=== PATIENT | female | born 1950 | race Two or more races ===

== ENCOUNTER 2019-09-17 13:42 | Inpatient (IN) | payer MEDICARE, OTHER ==
[~2019-09-17] VITALS: Ht 152.4 cm; Wt 52.2 kg
[2019-09-17] MEDS ORDERED: RANITIDINE HCL150 M2 PO (13:44)
[2019-09-17] MEDS ORDERED: LEVOTHYROXINE75 MCG ORAL (13:45)
--- NOTE | 2019-09-17 13:51 | NUR ---
ED Nurse Note: Patient brought in by ambulance from daylight due to possible syncopal episode/altered. Pateint was sitting in chair and found have low blood pressure. Patient awake, alert, oriented (name, place), c/o frontal headache. Reports no N/V or trauma. No family member available at this time. Placed patient in gown and on naval science teacher.
[2019-09-17 14:00] VITALS: BP 89/49
[2019-09-17] MEDS ORDERED: Sodium Chloride 1,400 ML IVLG ONE (14:15)
--- NOTE | 2019-09-17 14:36 | NUR ---
ED Nurse Note: Patient taken down for CT scan head. Blood culture 2nd set drawn and set. Urine collected 20ml, yellow urine with foul smell noted.
--- NOTE | 2019-09-17 14:38 | Emergency Room Report ---
History of Present Illness General Chief Complaint: Altered Level of Consciousness Source: Patient, Family Member, Medical Record Present Illness HPI This patient is accompanied by her sister who is her primary caregiver. The patient was attending adult daycare today when workers there noted that she was slumped over in her chair. It was noted that her blood pressure was low. The patient herself has no complaints other than she has a headache. The caregiver notes that she has had a mild cough and decreased appetite over the past couple days. There is no report of fever. There is no other pain. There are no other complaints. Allergies: Coded Allergies: No Known Allergies (Unverified , 09/17/19) Patient History Past Medical History: see triage record, [place], GERD, seizures, renal disease, other - Hypothyroid, Hx of bulemia (morbid obesity) Past Surgical History: other - hx of open heart surgery as a child ([place], CHF in her 30's) Social History: Denies: smoking, alcohol use, drug use Reviewed Nursing Documentation: PMH: Agreed; PSxH: Agreed Review of Systems All Other Systems: negative except mentioned in HPI Physical Exam Vital Signs Date Time Temp Pulse Resp B/P (MAP) Pulse Ox O2 Delivery O2 Flow Rate FiO2 09/17/19 13:35 98.1 82 16 70/40 (50) 96 Room Air Sp02 EP Interpretation: reviewed, normal General Appearance: no apparent distress, alert, GCS 15, non-toxic Head: normocephalic, atraumatic Eyes: bilateral eye normal inspection, bilateral eye PERRL ENT: hearing grossly normal, normal pharynx, no angioedema, normal voice Neck: supple/symm/no masses Respiratory: chest non-tender, lungs clear, normal breath sounds, no respiratory distress, no retraction, no accessory muscle use, speaking full sentences Cardiovascular #1: regular rate, rhythm, no edema Gastrointestinal: normal bowel sounds, non tender, soft, non-distended, no guarding, no rebound Rectal: deferred Musculoskeletal: back normal, normal range of motion, non-tender Neurologic: alert, motor strength/tone normal, oriented, sensory intact, responsive, speech normal, no focal defects Psychiatric: judgement/insight normal, mood/affect normal, no suicidal/ homicidal ideation Skin: other - See RN skin exam Lymphatic: no adenopathy Medical Decision Making Diagnostic Impression: Primary Impression: NSTEMI (non-ST elevated myocardial infarction) Additional Impressions: Syncope Hypotension Pneumonia Anemia Leukocytosis Renal failure ER Course This patient was found to be significantly bradycardic with heart rates in the low 50s. She was also borderline hypotensive. On arrival she was hypotensive but did stabilize in the low 100s systolic during her ED course after IV fluids. She was given Rocephin as a precaution and for possible pneumonia on chest x-ray. The patient's troponin was elevated. She also has an elevated creatinine that I am unsure of the acuity. Per report from her caregiver the patient does have known kidney disease. I do not have any comparison labs. Given the patient's age and chronic illnesses, she does have a high avidity and mortality. Although, the patient's blood pressure did stabilize, I felt this patient should be monitored and admitted to the ICU stepdown for concern that she could deteriorate. She is admitted for further evaluation and treatment and further monitoring. This patient is critically ill. This patient required complex medical decision- making, aggressive intervention, extensive laboratory workup and monitoring. Critical care time: 40 minutes. Laboratory Tests Test 09/17/19 14:10 09/17/19 14:22 White Blood Count 15.6 K/UL (4.8-10.8) H Red Blood Count 3.28 M/UL (4.20-5.40) L Hemoglobin 10.3 G/DL (12.0-16.0) L Hematocrit 31.0 % (37.0-47.0) L Mean Corpuscular Volume 94 FL (80-99) Mean Corpuscular Hemoglobin 31.4 PG (27.0-31.0) H Mean Corpuscular Hemoglobin Concent 33.3 G/DL (32.0-36.0) Red Cell Distribution Width 13.1 % (11.6-14.8) Platelet Count 195 K/UL (150-450) Mean Platelet Volume 6.4 FL (6.5-10.1) L Neutrophils (%) (Auto) 83.2 % (45.0-75.0) H Lymphocytes (%) (Auto) 10.3 % (20.0-45.0) L Monocytes (%) (Auto) 6.1 % (1.0-10.0) Eosinophils (%) (Auto) 0.2 % (0.0-3.0) Basophils (%) (Auto) 0.1 % (0.0-2.0) Sodium Level 138 MMOL/L (136-145) Potassium Level 4.5 MMOL/L (3.5-5.1) Chloride Level 105 MMOL/L (98-107) Carbon Dioxide Level 22 MMOL/L (21-32) Anion Gap 11 mmol/L (5-15) Blood Urea Nitrogen 44 mg/dL (7-18) H Creatinine 2.4 MG/DL (0.55-1.30) H Estimate Glomerular Filtration Rate mL/min (>60) Glucose Level 112 MG/DL (74-106) H Calcium Level 8.3 MG/DL (8.5-10.1) L Total Bilirubin 0.5 MG/DL (0.2-1.0) Aspartate Amino Transferase (AST) 31 U/L (15-37) Alanine Aminotransferase (ALT) 19 U/L (12-78) Alkaline Phosphatase 81 U/L (46-116) Total Creatine Kinase 173 U/L (26-308) Creatine Kinase MB 1.5 NG/ML (0.0-3.6) Creatine Kinase MB Relative Index 0.8 Troponin I 0.099 ng/mL (0.000-0.056) Total Protein 5.6 G/DL (6.4-8.2) L Albumin 2.3 G/DL (3.4-5.0) L Globulin 3.3 g/dL Albumin/Globulin Ratio 0.7 (1.0-2.7) L Thyroid Stimulating Hormone (TSH) 2.514 uiU/mL (0.358-3.740) Free Thyroxine 1.27 NG/DL (0.76-1.46) Urine Color Yellow Urine Appearance Slightly cloudy Urine pH 5 (4.5-8.0) Urine Specific [place] 1.020 (1.005-1.035) Urine Protein 3+ (NEGATIVE) H Urine Glucose (UA) Negative (NEGATIVE) Urine Ketones 1+ (NEGATIVE) H Urine Blood 2+ (NEGATIVE) H Urine Nitrite Negative (NEGATIVE) Urine Bilirubin 2+ (NEGATIVE) H Urine Ictotest Negative (NEGATIVE) Urine Urobilinogen 1 MG/DL (0.0-1.0) H Urine Leukocyte Esterase 1+ (NEGATIVE) H Urine RBC 2-4 /HPF (0 - 2) H Urine WBC 2-4 /HPF (0 - 2) Urine Squamous Epithelial Cells Many /LPF (NONE/OCC) H Urine Amorphous Sediment Few /LPF (NONE) H Urine Bacteria Few /HPF (NONE) Lactic Acid Level 1.20 mmol/L (0.4-2.0) Microbiology Date/Time Source Procedure Growth Status 09/17/19 14:22 Nasal Nares - Final Complete 09/17/19 14:22 Nasal Nares - Final Complete EKG Diagnostic Results Rate: bradycardiac Rhythm: other - S.bradycardia ST Segments: other - ST segment depressions in V1, V2, V3 Rhythm Strip Diag. Results EP Interpretation: yes Rate: 50's Rhythm: no PVC's, no ectopy, other - S.ha, ectopy Chest X-Ray Diagnostic Results Chest X-Ray Diagnostic Results : Chest X-Ray Ordered: Yes # of Views/Limited/Complete: 1 View Indication: Other - syncope EP Interpretation: Yes Interpretation: other - RLL opacity questionable, cardiomegaly Impression: Other - ?PNA, cardiomegaly. Electronically Signed by: Mignon Daniel DO CT/MRI/US Diagnostic Results CT/MRI/US Diagnostic Results : Imaging Test Ordered: CT head Impression No acute findings. Specifically no intracranial bleed, mass effect or edema. See official report. Last Vital Signs Date Time Temp Pulse Resp B/P (MAP) Pulse Ox O2 Delivery O2 Flow Rate FiO2 09/17/19 13:35 98.1 82 16 70/40 (50) 96 Room Air Disposition: ADMITTED INPATIENT Condition: Critical Mignon Daniel DO Sep 17, 2019 14:38
[2019-09-17 14:54] LABS: BASOPHILS % (AUTO) 0.1 % (0.0-2.0); EOSINOPHILS % (AUTO) 0.2 % (0.0-3.0); HEMOGLOBIN 10.3 G/DL (12.0-16.0); LYMPHOCYTES % (AUTO) 10.3 % (20.0-45.0); MEAN CORPUSCULAR VOLUME 94 FL (80-99); MONOCYTES % (AUTO) 6.1 % (1.0-10.0); NEUTROPHILS % (AUTO) 83.2 % (45.0-75.0); PLATELET COUNT 195 K/UL (150-450); RED BLOOD COUNT 3.28 M/UL (4.20-5.40); RED CELL DISTRIBUTION WIDTH 13.1 % (11.6-14.8); WHITE BLOOD COUNT 15.6 K/UL (4.8-10.8)
[2019-09-17 14:57] LABS: ANION GAP 11 mmol/L (5-15); BLOOD UREA NITROGEN 44 mg/dL (7-18); CALCIUM 8.3 MG/DL (8.5-10.1); CARBON DIOXIDE 22 MMOL/L (21-32); CHLORIDE 105 MMOL/L (98-107); CREATININE 2.4 MG/DL (0.55-1.30); POTASSIUM 4.5 MMOL/L (3.5-5.1); SODIUM 138 MMOL/L (136-145)
[2019-09-17 15:00] LABS: APPEARANCE,URINE SLIGHTLY CLOUDY; BILIRUBIN, URINE 2+ (NEGATIVE); GLUCOSE, URINE (UA) NEGATIVE (NEGATIVE); KETONES,URINE 1+ (NEGATIVE); LEUKOCYTE ESTERASE ,URINE 1+ (NEGATIVE); NITRITE,URINE NEGATIVE (NEGATIVE); PH,URINE 5 (4.5-8.0); PROTEIN,URINE 3+ (NEGATIVE); UROBILINOGEN,URINE 1 MG/DL (0.0-1.0)
--- NOTE | 2019-09-17 15:00 | NUR ---
ED Nurse Note: Patient's sister here at bedside. Patient recently had flu-like symptoms. Reprots no CP, SOB or dyspnea. Patient has hx of mental disability.
[2019-09-17 15:06] LABS: COLOR,URINE YELLOW
[2019-09-17 15:10] LABS: ALANINE AMINOTRANSFERASE 19 U/L (12-78); ALBUMIN 2.3 G/DL (3.4-5.0); ALBUMIN/GLOBULIN RATIO 0.7 (1.0-2.7); ALKALINE PHOSPHATASE 81 U/L (46-116); ASPARTATE AMINO TRANSFERASE 31 U/L (15-37); BILIRUBIN,TOTAL 0.5 MG/DL (0.2-1.0); CKMB 1.5 NG/ML (0.0-3.6); CREATINE KINASE 173 U/L (26-308)
--- NOTE | 2019-09-17 15:18 | Diagnostic Imaging Report ---
Indication: Headache Technique: Contiguous 5 mm thick transaxial imaging of the head obtained in a Siemens Sensation [address] scanner. Soft tissue and bone windows generated. Automatic Exposure Control was utilized. Total Dose length Product (DLP): 1394.[address] Dose Index Volume (CTDIvol): 60 mGy Comparison: none Findings: The size and configuration of the cortical sulci, basal cisterns, and ventricles are within normal limits for age. There is no mass effect, midline shift, or edema identified. There is no evidence of acute hemorrhage or abnormal intra-axial or extra-axial fluid collections. The bones and soft tissues are unremarkable. There is opacification of the left sphenoid sinusitis. There is a mucous retention cyst within the left frontal sinus measuring 1.5 cm. Impression: No mass effect, edema or acute bleed. Sinus disease The CT scanner at [facility] is accredited by the [employer] and the scans are performed using dose optimization techniques as appropriate to a performed exam including Automatic Exposure control.
[2019-09-17] MEDS ORDERED: Aspirin EC 325mg tab ORAL ONE (15:45)
[2019-09-17 16:00] VITALS: BP 98/49
--- NOTE | 2019-09-17 16:00 | NUR ---
ED Nurse Note: ERMD notified of HR 54, junctional rhythm with SBP >90. No further order received. No changes in mental status noted.
[2019-09-17] MEDS ORDERED: OMEPRAZOLE40 M1 ORAL (16:25)
[2019-09-17] MEDS ORDERED: CALCITRIOL0.25 MCG PO (16:25)
--- NOTE | 2019-09-17 16:26 | Diagnostic Imaging Report ---
Indication: Dyspnea Comparison: None A single view chest radiograph was obtained. Findings: Pulmonary vascularity is prominent. Hilar vessels are enlarged. Cardiac enlargement noted. Sternotomy noted. Bones are osteopenic. There is a calcified structure in the right upper quadrant abdomen which might be the gallbladder. Surgical clips noted in the upper abdomen. IMPRESSION: Suspected mild CHF.
[2019-09-17 17:00] VITALS: BP 101/44
[2019-09-17] MEDS ORDERED: cefTRIAXone 1 GM in NS 55 ML IVPB ONE (17:15)
--- NOTE | 2019-09-17 18:33 | NUR ---
ED Nurse Note: Report given to ANABELLA Romero.
--- NOTE | 2019-09-17 18:44 | NUR ---
ED Nurse Note: Patient is being transferred to SDU accompained by ANABELLA Matthews. Patient resting in bed. Reports no CP, SOB or dyspnea. No changes in mental status noted. Patient's sister taking all her clothing.
--- NOTE | 2019-09-17 19:20 | NUR ---
NURSE NOTES: Received patient from ANABELLA Romero. Patient is aaox 1 with mental delay, vss, with no acute distress. Pt is cooperative, verbal, on cardiac technologist, and well groomed. Pt is on room air, NPO except ice and medications. Skin is intact, IV on left AC 20g and patient can reportedly ambulate to bedside commode with minimal assistance. Family member at bed side. Bed at its lowest position, call light in reach and x3 bed rails are up. Will continue to monitor.
[2019-09-17] MEDS ORDERED: Zolpidem 5mg tab ORAL PRN (19:30)
[2019-09-17] MEDS ORDERED: LORazepam Inj 2mg/ml 1ml IV PRN (19:30)
[2019-09-17] MEDS ORDERED: HYDROmorphone 1mg/ml Carpuject IVP PRN (19:30)
[2019-09-17] MEDS ORDERED: Hydromorphone 0.5mg/0.5ml inj IVP PRN (19:30)
[2019-09-17] MEDS ORDERED: Miralax 17gm pkt ORAL PRN (19:30)
[2019-09-17] MEDS ORDERED: Albuterol/Ipratropium 3ml neb HHN PRN (19:30)
[2019-09-17 20:00] VITALS: BP 97/45
[2019-09-17] MEDS: Docusate 100mg cap ORAL SCH (21:43)
[2019-09-17] MEDS: Atorvastatin 80mg tab ORAL SCH (21:43)
[2019-09-17] MEDS: Aspirin Baby 81mg ORAL SCH (21:48)
[2019-09-17] MEDS: Enoxaparin 30mg Inj SUBQ SCH (21:49)
[2019-09-18] VITALS: BP 128/54
[2019-09-18 04:00] VITALS: BP 112/69
[2019-09-18 06:37] LABS: BASOPHILS % (AUTO) 0.3 % (0.0-2.0); EOSINOPHILS % (AUTO) 1.4 % (0.0-3.0); HEMATOCRIT 33.8 % (37.0-47.0); HEMOGLOBIN 11.2 G/DL (12.0-16.0); LYMPHOCYTES % (AUTO) 12.2 % (20.0-45.0); MEAN CORPUSCULAR VOLUME 94 FL (80-99); MONOCYTES % (AUTO) 4.3 % (1.0-10.0); NEUTROPHILS % (AUTO) 81.8 % (45.0-75.0); PLATELET COUNT 195 K/UL (150-450); RED BLOOD COUNT 3.62 M/UL (4.20-5.40); RED CELL DISTRIBUTION WIDTH 13.2 % (11.6-14.8); WHITE BLOOD COUNT 10.5 K/UL (4.8-10.8)
--- NOTE | 2019-09-18 07:05 | NUR ---
HAND-OFF: Report given to ANABELLA Wahl.
--- NOTE | 2019-09-18 07:06 | NUR ---
NURSE NOTES: Received patient from ANABELLA Calderón. Patient is A&Ox2. Pt is cooperative, verbal, able to follow commands. NSR on radiological technologist, HR 71. No acute distress noted. Pt is on room air. NPO except ice and medications. Skin is intact, IV on left AC 20g. Advised pt to call if needing assistance to use the bathroom, pt verbalized understanding. Bed locked and in lowest position, call light in reach and x3 bed rails are up. Will continue to monitor.
[2019-09-18 07:35] LABS: ANION GAP 8 mmol/L (5-15); BLOOD UREA NITROGEN 44 mg/dL (7-18); CARBON DIOXIDE 23 MMOL/L (21-32); CHLORIDE 108 MMOL/L (98-107); CREATININE 2.1 MG/DL (0.55-1.30); POTASSIUM 4.4 MMOL/L (3.5-5.1); SODIUM 139 MMOL/L (136-145)
--- NOTE | 2019-09-18 07:44 | History and Physical ---
History of Present Illness General Date patient seen: Sep 18, 2019 Reason for Hospitalization: Altered Level of Consciousness Present Illness HPI 69 year old female with multiple medical problems presented to the ER with her sister who is her caregiver from adult day care. Patient is a poor historian and information is obtained via reviewing medical chart and speaking to the ED attending. In the adult daycare patient was noted to be slumped over in her chair and found to have very low blood pressure in the 80s. Patient is alert and oriented x2 today and says that the reason why she ended up in the hospital is because she felt dizzy. Per her ios programmer patient has had a cough and decreased appetite for the past couple of days. No reports of fever. Patient denies chest pain, shortness of breath. Patient says she fell she also hit the right side of her head. Past Medical History: Hypothyroidism, vitamin D deficiency, iron deficiency anemia, chronic kidney disease, bulimia nervosa, intellectual disability, hyperglyceridemia, GERD, liver disease, bronchitis, history of urinary tract infections Past Surgical History: hx of open heart surgery as a child ([place], CHF in her 30's ) Social History: Denies: smoking, alcohol use, drug use Family history: Patient unable to provide. PCP Ena Burrell [phone] Allergies: Coded Allergies: No Known Allergies (Unverified , 09/17/19) Medication History Scheduled Calcitriol (Calcitriol), 0.25 MCG PO DAILY, (Reported) Levothyroxine Sodium* (Levothyroxine Sodium*), 75 MCG ORAL DAILY, (Reported) Omeprazole (Omeprazole), 40 MG ORAL DAILY, (Reported) Miscellaneous Medications Ranitidine HCl (Ranitidine HCl), 150 MG PO, (Reported) Patient History Healthcare decision maker Resuscitation status Full Code Advanced Directive on File Review of Systems Constitutional: Reports: weakness Eye: Denies: no symptoms, see HPI, eye pain, blurred vision, tearing, double vision, nose pain, nose congestion, acuity changes, discharge, other ENT: Denies: no symptoms, see HPI, ear pain, ear discharge, nose pain, nose congestion, throat pain, throat swelling, mouth pain, hearing loss, nasal discharge, other Respiratory: Reports: cough Cardiovascular: Denies: no symptoms, see HPI, chest pain, edema, palpitations, syncope, PND, other Gastrointestinal: Denies: no symptoms, see HPI, abdominal pain, constipation, diarrhea, nausea, vomiting, melena, hematemesis, other Genitourinary: Denies: no symptoms, see HPI, discharge, dysuria, frequency, hematuria, pain, retention, incontinence, urgency, vag bleed/dc, other Musculoskeletal: Denies: no symptoms, see HPI, back pain, gout, joint pain, joint swelling, muscle pain, muscle stiffness, other Skin: Denies: no symptoms, see HPI, rash, change in color, change in hair/nails , dryness, lesions, other Psychiatric: Denies: no symptoms, see HPI, prior hx, anxiety, depressed feelings, emotional problems, SI, HI, hallucinations, other Neurological: Reports: dizziness Endocrine: Denies: no symptoms, see HPI, excessive sweating, flushing, intolerance to temperature, increased thirst, increased urine, unexplained weight loss, other Hematologic/Lymphatic: Denies: no symptoms, see HPI, anemia, blood clots, easy bleeding, easy bruising, swollen glands, diathesis, other Physical Exam General Appearance: no apparent distress Lines, tubes and drains: peripheral HEENT: normocephalic, atraumatic, anicteric, EOMI, other - green discharge both eyes Neck: non-tender, normal alignment, supple Respiratory/Chest: chest wall non-tender, lungs clear, normal breath sounds, no respiratory distress, no accessory muscle use, other - Sternotomy scar Cardiovascular/Chest: normal peripheral pulses, normal rate, regular rhythm, no gallop/murmur, no JVD Abdomen: normal bowel sounds, non tender, soft, no organomegaly, no mass, other - obese Extremities: normal range of motion, non-tender, normal inspection, no calf tenderness, no edema, no cyanosis Skin Exam: normal pigmentation, warm/dry Neurologic: no motor/sensory deficits, alert - oriented x2 , responsive Musculoskeletal: normal muscle bulk, no effusion Last 24 Hour Vital Signs Date Time Temp Pulse Resp B/P (MAP) Pulse Ox O2 Delivery O2 Flow Rate FiO2 09/18/19 04:00 Room Air 09/18/19 04:00 58 09/18/19 04:00 97.7 58 20 112/69 (83) 99 09/18/19 00:00 Room Air 09/18/19 00:00 97.4 53 20 128/54 (78) 94 09/17/19 23:27 Room Air 09/17/19 20:00 Room Air 09/17/19 20:00 56 09/17/19 20:00 97.4 45 22 97/45 (62) 95 09/17/19 18:41 55 16 104/45 99 Room Air 09/17/19 17:00 97.6 53 17 101/44 99 Room Air 09/17/19 16:19 63 16 Room Air 09/17/19 16:00 55 16 98/49 97 Room Air 09/17/19 14:00 97.1 63 16 89/49 99 Room Air 09/17/19 13:35 98.1 82 16 70/40 (50) 96 Room Air Intake and Output 09/17/19 09/18/19 19:00 07:00 Intake Total 2155 ml Balance 2155 ml Intake IV Total 2155 ml # Voids 1 1 Laboratory Tests Test 09/17/19 14:10 09/17/19 14:22 09/18/19 04:05 White Blood Count 15.6 K/UL (4.8-10.8) H 10.5 K/UL (4.8-10.8) Red Blood Count 3.28 M/UL (4.20-5.40) L 3.62 M/UL (4.20-5.40) L Hemoglobin 10.3 G/DL (12.0-16.0) L 11.2 G/DL (12.0-16.0) L Hematocrit 31.0 % (37.0-47.0) L 33.8 % (37.0-47.0) L Mean Corpuscular Volume 94 FL (80-99) 94 FL (80-99) Mean Corpuscular Hemoglobin 31.4 PG (27.0-31.0) H 31.1 PG (27.0-31.0) H Mean Corpuscular Hemoglobin Concent 33.3 G/DL (32.0-36.0) 33.2 G/DL (32.0-36.0) Red Cell Distribution Width 13.1 % (11.6-14.8) 13.2 % (11.6-14.8) Platelet Count 195 K/UL (150-450) 195 K/UL (150-450) Mean Platelet Volume 6.4 FL (6.5-10.1) L 7.6 FL (6.5-10.1) Neutrophils (%) (Auto) 83.2 % (45.0-75.0) H 81.8 % (45.0-75.0) H Lymphocytes (%) (Auto) 10.3 % (20.0-45.0) L 12.2 % (20.0-45.0) L Monocytes (%) (Auto) 6.1 % (1.0-10.0) 4.3 % (1.0-10.0) Eosinophils (%) (Auto) 0.2 % (0.0-3.0) 1.4 % (0.0-3.0) Basophils (%) (Auto) 0.1 % (0.0-2.0) 0.3 % (0.0-2.0) Sodium Level 138 MMOL/L (136-145) Pending Potassium Level 4.5 MMOL/L (3.5-5.1) Pending Chloride Level 105 MMOL/L (98-107) Pending Carbon Dioxide Level 22 MMOL/L (21-32) Pending Anion Gap 11 mmol/L (5-15) Blood Urea Nitrogen 44 mg/dL (7-18) H Pending Creatinine 2.4 MG/DL (0.55-1.30) H Pending Estimat Glomerular Filtration Rate mL/min (>60) Pending Glucose Level 112 MG/DL (74-106) H Pending Calcium Level 8.3 MG/DL (8.5-10.1) L Pending Total Bilirubin 0.5 MG/DL (0.2-1.0) Aspartate Amino Transf (AST/SGOT) 31 U/L (15-37) Alanine Aminotransferase (ALT/SGPT) 19 U/L (12-78) Alkaline Phosphatase 81 U/L (46-116) Total Creatine Kinase 173 U/L (26-308) Creatine Kinase MB 1.5 NG/ML (0.0-3.6) Creatine Kinase MB Relative Index 0.8 Troponin I 0.099 ng/mL (0.000-0.056) 0.025 ng/mL (0.000-0.056) Total Protein 5.6 G/DL (6.4-8.2) L Albumin 2.3 G/DL (3.4-5.0) L Globulin 3.3 g/dL Albumin/Globulin Ratio 0.7 (1.0-2.7) L Thyroid Stimulating Hormone (TSH) 2.514 uiU/mL (0.358-3.740) Free Thyroxine 1.27 NG/DL (0.76-1.46) Urine Color Yellow Urine Appearance Slightly cloudy Urine pH 5 (4.5-8.0) Urine Specific [place] 1.020 (1.005-1.035) Urine Protein 3+ (NEGATIVE) H Urine Glucose (UA) Negative (NEGATIVE) Urine Ketones 1+ (NEGATIVE) H Urine Blood 2+ (NEGATIVE) H Urine Nitrite Negative (NEGATIVE) Urine Bilirubin 2+ (NEGATIVE) H Urine Ictotest Negative (NEGATIVE) Urine Urobilinogen 1 MG/DL (0.0-1.0) H Urine Leukocyte Esterase 1+ (NEGATIVE) H Urine RBC 2-4 /HPF (0 - 2) H Urine WBC 2-4 /HPF (0 - 2) Urine Squamous Epithelial Cells Many /LPF (NONE/OCC) H Urine Amorphous Sediment Few /LPF (NONE) H Urine Bacteria Few /HPF (NONE) Lactic Acid Level 1.20 mmol/L (0.4-2.0) Pro-B-Type Natriuretic Peptide Pending Microbiology Date/Time Source Procedure Growth Status 09/17/19 14:22 Nasal Nares - Final Complete 09/17/19 14:22 Nasal Nares - Final Complete Height (Feet): 5 Height (Inches): 0.00 Weight (Pounds): 117 Medications Current Medications Medications (Trade) Dose Ordered Sig/Blayne Route PRN Reason Start Time Stop Time Status Last Admin Dose Admin Acetaminophen (Tylenol) 650 mg Q4H PRN ORAL Mild Pain (Pain Scale 1-3) 09/17/19 19:30 10/17/19 19:29 Acetaminophen (Tylenol) 650 mg Q4H PRN ORAL fever 09/17/19 19:30 10/17/19 19:29 Albuterol/ Ipratropium (Albuterol/ Ipratropium) 3 ml Q4H PRN HHN Shortness of Breath 09/17/19 19:30 09/22/19 19:29 Aspirin (ASA) 81 mg DAILY ORAL 09/17/19 20:00 10/17/19 19:59 09/17/19 21:48 Atorvastatin Calcium (Lipitor) 80 mg BEDTIME ORAL 09/17/19 21:00 10/17/19 20:59 09/17/19 21:43 Dextrose (Dextrose 50%) 25 ml Q30M PRN IV Hypoglycemia 09/17/19 19:30 10/17/19 19:29 Dextrose (Dextrose 50%) 50 ml Q30M PRN IV Hypoglycemia 09/17/19 19:30 10/17/19 19:29 Docusate Sodium (Colace) 100 mg EVERY 12 HOURS ORAL 09/17/19 21:00 10/17/19 20:59 09/17/19 21:43 Enoxaparin Sodium (Lovenox) 30 mg Q24H SUBQ 09/17/19 21:00 10/17/19 20:59 09/17/19 21:49 Hydromorphone HCl (Dilaudid) 0.5 mg Q4H PRN IVP Moderate Pain (Pain Scale 4-6) 09/17/19 19:30 09/24/19 19:29 Hydromorphone HCl (Dilaudid) 1 mg Q4H PRN IVP Severe Pain (Pain Scale 7-10) 09/17/19 19:30 09/24/19 19:29 Levothyroxine Sodium (Synthroid) 75 mcg Q24H ORAL 09/18/19 06:30 10/18/19 06:29 09/18/19 06:20 Lorazepam (Ativan 2mg/ml 1ml) 0.5 mg Q4H PRN IV For Anxiety 09/17/19 19:30 09/24/19 19:29 Polyethylene Glycol (Miralax) 17 gm DAILYPRN PRN ORAL Constipation 09/17/19 19:30 10/17/19 19:29 Zolpidem Tartrate (Ambien) 5 mg DAILYPRN PRN ORAL Insomnia 09/17/19 19:30 09/24/19 19:29 Objective Narrative EKG is personally interpreted by me junctional rhythm at 53 , T wave inversions in anterolateral leads prolonged at 499ms CT head as read by radiology: Negative for any acute pathology Assessment/Plan Problem List: (1) Syncope ICD Codes: R55 - Syncope and collapse SNOMED: 179943893 (2) NSTEMI (non-ST elevated myocardial infarction) ICD Codes: I21.4 - Non-ST elevation (NSTEMI) myocardial infarction SNOMED: 44064915 (3) CKD (chronic kidney disease) ICD Codes: N18.9 - Chronic kidney disease, unspecified SNOMED: 997575943 (4) ANNMARIE (acute kidney injury) ICD Codes: N17.9 - Acute kidney failure, unspecified SNOMED: 8348278, 57416165 (5) Hypotension ICD Codes: I95.9 - Hypotension, unspecified SNOMED: 96186928 (6) Anemia ICD Codes: D64.9 - Anemia, unspecified SNOMED: 560191075 (7) Leukocytosis ICD Codes: D72.829 - Elevated white blood cell count, unspecified SNOMED: 722493263, 470529058 Status: stable Assessment/Plan: 69-year-old female with 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 #Syncope #Non-ST elevation PA #? CHF- cxr with mild chf Admit to SDU Serial troponins and EKG Hold off on heparin drip as there is no report of chest pain Cardiology consult 2D echocardiogram Aspirin and statin, would hold any beta-blockers due to low blood pressure and low heart rate check BNP #ANNMARIE on CKD, unknown stage IV fluids Monitor renal function Nephrology consult Dr. Pepper Avoid nephrotoxic medications #Hypothyroidism Check TSH, free T4 Continue levothyroxine #GERD Continue PPI #Iron deficiency anemia Check anemia panel Stable #Bulimia nervosa and history of obesity Stable #Iron deficiency anemia continue to monitor check anemia panel #Vitamin D deficiency check vitamin D levels #Intellectual disability Sister: Lo Jamison [phone] PT/OT i spent 71 minutes on this encounter. >50% spent on counselling and care coordination. i spent an additonal 35 minutes in chart review. 15 minutes spent on discussing goals of care with sister. Kingsley Pinedo M.D. Sep 18, 2019 07:44
[2019-09-18 08:00] VITALS: BP 142/75
[2019-09-18] MEDS: Docusate 100mg cap ORAL SCH ×2 (08:54→20:56)
[2019-09-18] MEDS: Aspirin Baby 81mg ORAL SCH (08:55)
--- NOTE | 2019-09-18 09:24 | Consultation ---
History of Present Illness General Chief Complaint: Altered Level of Consciousness Reason for Consultation: ANNMARIE - possible CKD? Present Illness HPI 69 year old female with multiple medical problems presented to the ER with her sister who is her caregiver from adult day care. Information is obtained via reviewing medical chart In the adult daycare patient was noted to be slumped over in her chair and found to have very low blood pressure in the 80s. Patient is alert and oriented x2 today and says that the reason why she ended up in the hospital is because she felt dizzy. Per her watermelon inspector patient has had a cough and decreased appetite for the past couple of days. No reports of fever. Patient denies chest pain, shortness of breath. Patient says she fell she also hit the right side of her head. Cr on presentation noted to be 2.1 s/p 1l NS Renal US: IMPRESSION: Medical renal disease. No evidence of obstructive nephropathy. 1.8 cm probable cyst upper pole the right kidney. Trace left pleural effusion. Allergies: Coded Allergies: No Known Allergies (Unverified , 09/17/19) Medication History Scheduled Calcitriol (Calcitriol), 0.25 MCG PO DAILY, (Reported) Levothyroxine Sodium* (Levothyroxine Sodium*), 75 MCG ORAL DAILY, (Reported) Omeprazole (Omeprazole), 40 MG ORAL DAILY, (Reported) Miscellaneous Medications Ranitidine HCl (Ranitidine HCl), 150 MG PO, (Reported) Patient History Limited by: medical condition History Provided By: Medical Record Healthcare decision maker Resuscitation status Full Code Advanced Directive on File Review of Systems All Other Systems: negative except mentioned in HPI Physical Exam Physical Exam Narrative General Appearance: no apparent distress Lines, tubes and drains: peripheral HEENT: normocephalic, atraumatic, anicteric, EOMI, other - green discharge both eyes Neck: non-tender, normal alignment, supple Respiratory/Chest: chest wall non-tender, lungs clear, normal breath sounds, no respiratory distress, no accessory muscle use, other - Sternotomy scar Cardiovascular/Chest: normal peripheral pulses, normal rate, regular rhythm, no gallop/murmur, no JVD Abdomen: normal bowel sounds, non tender, soft, no organomegaly, no mass, other - obese Extremities: normal range of motion, non-tender, normal inspection, no calf tenderness, no edema, no cyanosis Skin Exam: normal pigmentation, warm/dry Neurologic: no motor/sensory deficits, alert - oriented x2 , responsive Musculoskeletal: normal muscle bulk, no effusion Last 24 Hour Vital Signs Date Time Temp Pulse Resp B/P (MAP) Pulse Ox O2 Delivery O2 Flow Rate FiO2 09/18/19 08:00 74 09/18/19 04:00 Room Air 09/18/19 04:00 58 09/18/19 04:00 97.7 58 20 112/69 (83) 99 09/18/19 00:00 Room Air 09/18/19 00:00 97.4 53 20 128/54 (78) 94 09/17/19 23:27 Room Air 09/17/19 20:00 Room Air 09/17/19 20:00 56 09/17/19 20:00 97.4 45 22 97/45 (62) 95 09/17/19 18:41 55 16 104/45 99 Room Air 09/17/19 17:00 97.6 53 17 101/44 99 Room Air 09/17/19 16:19 63 16 Room Air 09/17/19 16:00 55 16 98/49 97 Room Air 09/17/19 14:00 97.1 63 16 89/49 99 Room Air 09/17/19 13:35 98.1 82 16 70/40 (50) 96 Room Air Intake and Output 09/17/19 09/18/19 19:00 07:00 Intake Total 2155 ml Balance 2155 ml Intake IV Total 2155 ml # Voids 1 1 Laboratory Tests Test 09/17/19 14:10 09/17/19 14:22 09/18/19 04:05 White Blood Count 15.6 K/UL (4.8-10.8) H 10.5 K/UL (4.8-10.8) Red Blood Count 3.28 M/UL (4.20-5.40) L 3.62 M/UL (4.20-5.40) L Hemoglobin 10.3 G/DL (12.0-16.0) L 11.2 G/DL (12.0-16.0) L Hematocrit 31.0 % (37.0-47.0) L 33.8 % (37.0-47.0) L Mean Corpuscular Volume 94 FL (80-99) 94 FL (80-99) Mean Corpuscular Hemoglobin 31.4 PG (27.0-31.0) H 31.1 PG (27.0-31.0) H Mean Corpuscular Hemoglobin Concent 33.3 G/DL (32.0-36.0) 33.2 G/DL (32.0-36.0) Red Cell Distribution Width 13.1 % (11.6-14.8) 13.2 % (11.6-14.8) Platelet Count 195 K/UL (150-450) 195 K/UL (150-450) Mean Platelet Volume 6.4 FL (6.5-10.1) L 7.6 FL (6.5-10.1) Neutrophils (%) (Auto) 83.2 % (45.0-75.0) H 81.8 % (45.0-75.0) H Lymphocytes (%) (Auto) 10.3 % (20.0-45.0) L 12.2 % (20.0-45.0) L Monocytes (%) (Auto) 6.1 % (1.0-10.0) 4.3 % (1.0-10.0) Eosinophils (%) (Auto) 0.2 % (0.0-3.0) 1.4 % (0.0-3.0) Basophils (%) (Auto) 0.1 % (0.0-2.0) 0.3 % (0.0-2.0) Sodium Level 138 MMOL/L (136-145) 139 MMOL/L (136-145) Potassium Level 4.5 MMOL/L (3.5-5.1) 4.4 MMOL/L (3.5-5.1) Chloride Level 105 MMOL/L (98-107) 108 MMOL/L (98-107) H Carbon Dioxide Level 22 MMOL/L (21-32) 23 MMOL/L (21-32) Anion Gap 11 mmol/L (5-15) 8 mmol/L (5-15) Blood Urea Nitrogen 44 mg/dL (7-18) H 44 mg/dL (7-18) H Creatinine 2.4 MG/DL (0.55-1.30) H 2.1 MG/DL (0.55-1.30) H Estimat Glomerular Filtration Rate mL/min (>60) mL/min (>60) Glucose Level 112 MG/DL (74-106) H 70 MG/DL (74-106) L Calcium Level 8.3 MG/DL (8.5-10.1) L 8.0 MG/DL (8.5-10.1) L Total Bilirubin 0.5 MG/DL (0.2-1.0) Aspartate Amino Transf (AST/SGOT) 31 U/L (15-37) Alanine Aminotransferase (ALT/SGPT) 19 U/L (12-78) Alkaline Phosphatase 81 U/L (46-116) Total Creatine Kinase 173 U/L (26-308) Creatine Kinase MB 1.5 NG/ML (0.0-3.6) Creatine Kinase MB Relative Index 0.8 Troponin I 0.099 ng/mL (0.000-0.056) 0.025 ng/mL (0.000-0.056) Total Protein 5.6 G/DL (6.4-8.2) L Albumin 2.3 G/DL (3.4-5.0) L Globulin 3.3 g/dL Albumin/Globulin Ratio 0.7 (1.0-2.7) L Thyroid Stimulating Hormone (TSH) 2.514 uiU/mL (0.358-3.740) Free Thyroxine 1.27 NG/DL (0.76-1.46) Urine Color Yellow Urine Appearance Slightly cloudy Urine pH 5 (4.5-8.0) Urine Specific [place] 1.020 (1.005-1.035) Urine Protein 3+ (NEGATIVE) H Urine Glucose (UA) Negative (NEGATIVE) Urine Ketones 1+ (NEGATIVE) H Urine Blood 2+ (NEGATIVE) H Urine Nitrite Negative (NEGATIVE) Urine Bilirubin 2+ (NEGATIVE) H Urine Ictotest Negative (NEGATIVE) Urine Urobilinogen 1 MG/DL (0.0-1.0) H Urine Leukocyte Esterase 1+ (NEGATIVE) H Urine RBC 2-4 /HPF (0 - 2) H Urine WBC 2-4 /HPF (0 - 2) Urine Squamous Epithelial Cells Many /LPF (NONE/OCC) H Urine Amorphous Sediment Few /LPF (NONE) H Urine Bacteria Few /HPF (NONE) Lactic Acid Level 1.20 mmol/L (0.4-2.0) Pro-B-Type Natriuretic Peptide 8591 pg/mL (0-125) H Microbiology Date/Time Source Procedure Growth Status 09/17/19 14:22 Nasal Nares - Final Complete 09/17/19 14:22 Nasal Nares - Final Complete Height (Feet): 5 Height (Inches): 0.00 Weight (Pounds): 117 Medications Current Medications Medications (Trade) Dose Ordered Sig/Blayne Route PRN Reason Start Time Stop Time Status Last Admin Dose Admin Acetaminophen (Tylenol) 650 mg Q4H PRN ORAL Mild Pain (Pain Scale 1-3) 09/17/19 19:30 10/17/19 19:29 Acetaminophen (Tylenol) 650 mg Q4H PRN ORAL fever 09/17/19 19:30 10/17/19 19:29 Albuterol/ Ipratropium (Albuterol/ Ipratropium) 3 ml Q4H PRN HHN Shortness of Breath 09/17/19 19:30 09/22/19 19:29 Aspirin (ASA) 81 mg DAILY ORAL 09/17/19 20:00 10/17/19 19:59 09/18/19 08:55 Atorvastatin Calcium (Lipitor) 80 mg BEDTIME ORAL 09/17/19 21:00 10/17/19 20:59 09/17/19 21:43 Dextrose (Dextrose 50%) 25 ml Q30M PRN IV Hypoglycemia 09/17/19 19:30 10/17/19 19:29 Dextrose (Dextrose 50%) 50 ml Q30M PRN IV Hypoglycemia 09/17/19 19:30 10/17/19 19:29 Docusate Sodium (Colace) 100 mg EVERY 12 HOURS ORAL 09/17/19 21:00 10/17/19 20:59 09/18/19 08:54 Enoxaparin Sodium (Lovenox) 30 mg Q24H SUBQ 09/17/19 21:00 10/17/19 20:59 09/17/19 21:49 Hydromorphone HCl (Dilaudid) 0.5 mg Q4H PRN IVP Moderate Pain (Pain Scale 4-6) 09/17/19 19:30 09/24/19 19:29 Hydromorphone HCl (Dilaudid) 1 mg Q4H PRN IVP Severe Pain (Pain Scale 7-10) 09/17/19 19:30 09/24/19 19:29 Levothyroxine Sodium (Synthroid) 75 mcg Q24H ORAL 09/18/19 06:30 10/18/19 06:29 09/18/19 06:20 Lorazepam (Ativan 2mg/ml 1ml) 0.5 mg Q4H PRN IV For Anxiety 09/17/19 19:30 09/24/19 19:29 Polyethylene Glycol (Miralax) 17 gm DAILYPRN PRN ORAL Constipation 09/17/19 19:30 10/17/19 19:29 Zolpidem Tartrate (Ambien) 5 mg DAILYPRN PRN ORAL Insomnia 09/17/19 19:30 09/24/19 19:29 Assessment/Plan Assessment/Plan: #ANNMARIE on CKD- unknown baseline- history suggesive pre- renal in the setting of decreased PO intake and hypotention, however given elevated BNP and mild pulm vascular congestion query cardio- renal syndrome 1- renal US with evidence of chronic medical renal disease #Syncope #Hypothyroidism #GERD #Bulimia nervosa and history of obesity #Iron deficiency anemia #Vitamin D deficiency - s/p 1L NS- hold off on further IVF given concerns for diastolic CHF - renal US reviewed - check urine chemistires - check UTP/cr - f/u 2d echo - check PTH, vitamin D - iron panel, ferritin - monitor bmp, mag and phos - will continue to follow Sheryl Pepper M.D. Sep 18, 2019 09:24
--- NOTE | 2019-09-18 09:43 | Cardiac Electrophysiology PN ---
Subjective Subjective [id number] Objective Last 24 Hour Vital Signs Date Time Temp Pulse Resp B/P (MAP) Pulse Ox O2 Delivery O2 Flow Rate FiO2 09/18/19 08:00 74 09/18/19 04:00 Room Air 09/18/19 04:00 58 09/18/19 04:00 97.7 58 20 112/69 (83) 99 09/18/19 00:00 Room Air 09/18/19 00:00 97.4 53 20 128/54 (78) 94 09/17/19 23:27 Room Air 09/17/19 20:00 Room Air 09/17/19 20:00 56 09/17/19 20:00 97.4 45 22 97/45 (62) 95 09/17/19 18:41 55 16 104/45 99 Room Air 09/17/19 17:00 97.6 53 17 101/44 99 Room Air 09/17/19 16:19 63 16 Room Air 09/17/19 16:00 55 16 98/49 97 Room Air 09/17/19 14:00 97.1 63 16 89/49 99 Room Air 09/17/19 13:35 98.1 82 16 70/40 (50) 96 Room Air Intake and Output 09/17/19 09/18/19 19:00 07:00 Intake Total 2155 ml Balance 2155 ml Intake IV Total 2155 ml # Voids 1 1 Laboratory Tests Test 09/17/19 14:10 09/17/19 14:22 09/18/19 04:05 White Blood Count 15.6 K/UL (4.8-10.8) H 10.5 K/UL (4.8-10.8) Red Blood Count 3.28 M/UL (4.20-5.40) L 3.62 M/UL (4.20-5.40) L Hemoglobin 10.3 G/DL (12.0-16.0) L 11.2 G/DL (12.0-16.0) L Hematocrit 31.0 % (37.0-47.0) L 33.8 % (37.0-47.0) L Mean Corpuscular Volume 94 FL (80-99) 94 FL (80-99) Mean Corpuscular Hemoglobin 31.4 PG (27.0-31.0) H 31.1 PG (27.0-31.0) H Mean Corpuscular Hemoglobin Concent 33.3 G/DL (32.0-36.0) 33.2 G/DL (32.0-36.0) Red Cell Distribution Width 13.1 % (11.6-14.8) 13.2 % (11.6-14.8) Platelet Count 195 K/UL (150-450) 195 K/UL (150-450) Mean Platelet Volume 6.4 FL (6.5-10.1) L 7.6 FL (6.5-10.1) Neutrophils (%) (Auto) 83.2 % (45.0-75.0) H 81.8 % (45.0-75.0) H Lymphocytes (%) (Auto) 10.3 % (20.0-45.0) L 12.2 % (20.0-45.0) L Monocytes (%) (Auto) 6.1 % (1.0-10.0) 4.3 % (1.0-10.0) Eosinophils (%) (Auto) 0.2 % (0.0-3.0) 1.4 % (0.0-3.0) Basophils (%) (Auto) 0.1 % (0.0-2.0) 0.3 % (0.0-2.0) Sodium Level 138 MMOL/L (136-145) 139 MMOL/L (136-145) Potassium Level 4.5 MMOL/L (3.5-5.1) 4.4 MMOL/L (3.5-5.1) Chloride Level 105 MMOL/L (98-107) 108 MMOL/L (98-107) H Carbon Dioxide Level 22 MMOL/L (21-32) 23 MMOL/L (21-32) Anion Gap 11 mmol/L (5-15) 8 mmol/L (5-15) Blood Urea Nitrogen 44 mg/dL (7-18) H 44 mg/dL (7-18) H Creatinine 2.4 MG/DL (0.55-1.30) H 2.1 MG/DL (0.55-1.30) H Estimat Glomerular Filtration Rate mL/min (>60) mL/min (>60) Glucose Level 112 MG/DL (74-106) H 70 MG/DL (74-106) L Calcium Level 8.3 MG/DL (8.5-10.1) L 8.0 MG/DL (8.5-10.1) L Total Bilirubin 0.5 MG/DL (0.2-1.0) Aspartate Amino Transf (AST/SGOT) 31 U/L (15-37) Alanine Aminotransferase (ALT/SGPT) 19 U/L (12-78) Alkaline Phosphatase 81 U/L (46-116) Total Creatine Kinase 173 U/L (26-308) Creatine Kinase MB 1.5 NG/ML (0.0-3.6) Creatine Kinase MB Relative Index 0.8 Troponin I 0.099 ng/mL (0.000-0.056) 0.025 ng/mL (0.000-0.056) Total Protein 5.6 G/DL (6.4-8.2) L Albumin 2.3 G/DL (3.4-5.0) L Globulin 3.3 g/dL Albumin/Globulin Ratio 0.7 (1.0-2.7) L Thyroid Stimulating Hormone (TSH) 2.514 uiU/mL (0.358-3.740) Free Thyroxine 1.27 NG/DL (0.76-1.46) Urine Color Yellow Urine Appearance Slightly cloudy Urine pH 5 (4.5-8.0) Urine Specific [place] 1.020 (1.005-1.035) Urine Protein 3+ (NEGATIVE) H Urine Glucose (UA) Negative (NEGATIVE) Urine Ketones 1+ (NEGATIVE) H Urine Blood 2+ (NEGATIVE) H Urine Nitrite Negative (NEGATIVE) Urine Bilirubin 2+ (NEGATIVE) H Urine Ictotest Negative (NEGATIVE) Urine Urobilinogen 1 MG/DL (0.0-1.0) H Urine Leukocyte Esterase 1+ (NEGATIVE) H Urine RBC 2-4 /HPF (0 - 2) H Urine WBC 2-4 /HPF (0 - 2) Urine Squamous Epithelial Cells Many /LPF (NONE/OCC) H Urine Amorphous Sediment Few /LPF (NONE) H Urine Bacteria Few /HPF (NONE) Lactic Acid Level 1.20 mmol/L (0.4-2.0) Pro-B-Type Natriuretic Peptide 8591 pg/mL (0-125) H Microbiology Date/Time Source Procedure Growth Status 09/17/19 14:22 Nasal Nares - Final Complete 09/17/19 14:22 Nasal Nares - Final Complete Lucas Patel MD Sep 18, 2019 09:43
--- NOTE | 2019-09-18 09:45 | NUR ---
NURSE NOTES: Dr Patel requested Orthostatic B/P. Layin/41. Sittin/644. Standin/83. Pt's sister is requesting transfer to [facility] as that is where pt receives medical care. Will follow up with social welfare research worker.
--- NOTE | 2019-09-18 10:10 | NUR ---
PT EVALUATION NOTE Patient seen for initial evaluation. Patient presents with generalized weakness which impairs patient's balance, activity tolerance and ability to perform mobility tasks safely. Patient requires CGA for transfers and ambulation with a FWW. Ambulation limited to 20 ft due to poor endurance. Patient will benefit from skilled inpatient PT intervention to address strength, balance, endurance and safety for improved level of independence with functional mobility. Recommend discharge to SNF for short term rehab vs home with home PT depending on patient's progress. Patient may benefit from FWW for ambulation depending on patient's progress. Addendum: 09/18/19 at 1327 by MARIELA MOORE PT Amended: Links added.
[2019-09-18 11:30] LABS: ANION GAP 10 mmol/L (5-15); BLOOD UREA NITROGEN 45 mg/dL (7-18); CALCIUM 8.1 MG/DL (8.5-10.1); CARBON DIOXIDE 20 MMOL/L (21-32); CHLORIDE 109 MMOL/L (98-107); POTASSIUM 4.3 MMOL/L (3.5-5.1); SODIUM 139 MMOL/L (136-145)
[2019-09-18 12:00] VITALS: BP 102/60
--- NOTE | 2019-09-18 13:05 | NUR ---
GARMENT LINERCORONER'S JUROR 69 YO FEMALE BIBA FROM ADULT DAY CARE FACILITY TO ER CC LOW B/P ALTERED SI: SYNCOPE,LEUKOCYTOSIS T. 98.0 HR 82 RR 16 B/P 70/40 WBC 15.6 BUN 44 CR 2.4 TROP 0.099 BNP 8591 UA+ PROTEIN,KETONES,BLOOD,LEUKOCYTE ESTERASE,RBC,SQUAMOUS EPITH CELLS HEAD CT= NEGATIVE CXR= SUSPECTED MILD CHF IS: IV BOLUS NS X 2.4 LITERS ASA PO ADMITTED TO STEP DOWN @ 1845 STEP DOWN STATUS DCP RETURN HOME
--- NOTE | 2019-09-18 14:12 | Diagnostic Imaging Report ---
Indication: Altered level of consciousness TECHNIQUE: Duplex extracranial carotid and vertebral artery sonography performed with color flow imaging and waveform analysis. COMPARISON: None FINDINGS: Right carotid: Grayscale and color-flow imaging demonstrating no hemodynamically significant stenosis within the common carotid artery, extracranial internal carotid artery. Peak systolic and end-diastolic velocities are within normal limits. ICA/CCA ratios are within normal limits. Mild heterogeneous plaques are demonstrated consistent with atherosclerotic disease. Left carotid: Grayscale and color-flow imaging demonstrating no hemodynamically significant stenosis within the common carotid artery, extracranial internal carotid artery. Peak systolic and end-diastolic velocities are within normal limits. ICA/CCA ratios are within normal limits. Mild heterogeneous plaques are demonstrated consistent with atherosclerotic disease. Vertebral arteries: Antegrade flow demonstrated within both vertebral arteries. IMPRESSION: No hemodynamically significant extracranial carotid artery stenosis identified. Antegrade flow within both vertebral arteries. This report utilizes carotid stenosis grading criteria based on the meeting of Society of radiologists in ultrasound consensus conference, May 2002.
--- NOTE | 2019-09-18 14:18 | Diagnostic Imaging Report ---
Indication:Elevated Bun and Creatinine. Technique: Grayscale and duplex Doppler imaging of the kidneys performed. Comparison: None Findings: The cortical echogenicity is abnormally increased within small bilateral kidneys. The right kidney measures 8.1 cm. in length. The left kidney measures 7.0 cm. in length. There is no hydronephrosis. There is a small probable cyst that appears hypoechoic measuring 1.8 cm the upper pole of the right kidney. There is a trace left pleural effusion present. The IVC is patent. Urinary bladder is unremarkable. There are multiple slightly hyperechoic nodular lesions within the spleen, nonspecific in nature. Consider evaluation with contrast CT or MR. IMPRESSION: Medical renal disease. No evidence of obstructive nephropathy. 1.8 cm probable cyst upper pole the right kidney. Trace left pleural effusion. Multiple echogenic lesions within the spleen nonspecific. Consider evaluation with contrast CT or MRI.
[2019-09-18] MEDS: Ciprofloxacin Opth Soln 2.5ml BOTH EYES SCH ×2 (14:19→21:08)
[2019-09-18 16:00] VITALS: BP 112/65
[2019-09-18 17:08] LABS: APPEARANCE,URINE CLOUDY; BILIRUBIN, URINE NEGATIVE (NEGATIVE); COLOR,URINE PALE YELLOW; GLUCOSE, URINE (UA) NEGATIVE (NEGATIVE); KETONES,URINE 1+ (NEGATIVE); LEUKOCYTE ESTERASE ,URINE 3+ (NEGATIVE); NITRITE,URINE NEGATIVE (NEGATIVE); PH,URINE 5 (4.5-8.0); PROTEIN,URINE 2+ (NEGATIVE); UROBILINOGEN,URINE NORMAL MG/DL (0.0-1.0)
--- NOTE | 2019-09-18 19:00 | Consultation ---
DATE OF CONSULTATION: 09/18/2019 CARDIOLOGY CONSULTATION CONSULTING PHYSICIAN: Lucas Patel M.D. REFERRING PHYSICIAN: Cecilia Drummond M.D. ADDITIONAL REFERRING PHYSICIAN: Kingsley Pinedo M.D. REASON FOR CONSULTATION: Syncope in a patient with history of heart surgery. HISTORY OF PRESENT ILLNESS: The patient is a 69-year-old lady with history of hypertension, hypothyroidism, and history of heart surgery in the past for unclear reason, who was at [facility] where she was noted to be slumped over in a chair. Her blood pressure was low. The patient did not have any chest pain, palpitation, or shortness of breath after she came back to herself. The patient's EKG showed junctional rhythm at a rate of [address]-T abnormalities suggestive of anterolateral ischemia. Her blood pressure in the ER was also 70/40. The patient was admitted for bradycardia as well as initially elevated troponin. Her BNP also was over 8500. REVIEW OF SYSTEMS: Negative other than what was mentioned in the history of present illness. PAST MEDICAL HISTORY: As mentioned above. FAMILY HISTORY: Noncontributory. SOCIAL HISTORY: Does not smoke or drink alcohol. PHYSICAL EXAMINATION: VITAL SIGNS: Blood pressure is 112/69, pulse 58, respirations 18, and she is afebrile. HEAD AND NECK: Shows no JVD. LUNGS: Clear. CARDIOVASCULAR: Shows status post prior sternotomy. Regular S1 and S2 with no gallop or murmur. ABDOMEN: Soft. EXTREMITIES: No pitting edema. LABORATORY AND DIAGNOSTIC DATA: Labs show white count of 10.5, hemoglobin 11.2, hematocrit 34, and platelet count 195,000. Sodium 139, potassium 4.4, BUN 44, creatinine 2.1, and glucose . Troponin is 0.99 and 0.25. ASSESSMENT AND PLAN: 1. Troponin elevation. Second troponin is negative. The patient has renal failure. Creatinine 2.1. Denies any chest pain. The patient is already on aspirin. Hold off on beta-nilay as the blood pressure was borderline low. Continue Lipitor 80 mg at bedtime. We will try to get the prior record to see what kind of heart surgery she had and it was a long time ago. 2. Status post open heart surgery and a sternotomy, the nature of which is unclear at this time. 3. Status post syncope, likely due to hypotension. The blood pressure was in the 70s. We will get an echocardiogram and completely rule out SC protocol for further evaluation. 4. Renal failure with creatinine at 2.1. 5. History of gastroesophageal reflux disease. 6. Hypothyroidism. 7. History of bulimia. Thank you very much for allowing me to participate in the care of this patient. Please do not hesitate to contact me for any questions regarding my evaluation. Lucas Patel M.D. DR: JIM JOB#: [id number] CC:
--- NOTE | 2019-09-18 19:06 | NUR ---
HAND-OFF: Report given to Jose Enrique Lynn RN.
--- NOTE | 2019-09-18 19:20 | NUR ---
NURSE NOTES: Received patient from ANABELLA Wahl. Patient A&Ox2. Calm and cooperative. Follows simple commands. NSR on cardiac exercise specialist. In no apparent distress. On room air. On renal diet. Ski intact, IV to left AC #20g. Sister at bedside, who will be staying overnight. Bed locked and in lowest position, call light w/in reach and x3 bed side rails up. Bed alarm engaged. Will continue POC.
[2019-09-18 20:00] VITALS: BP 123/72
[2019-09-18] MEDS: Atorvastatin 80mg tab ORAL SCH (20:57)
[2019-09-18] MEDS: Enoxaparin 30mg Inj SUBQ SCH (20:58)
--- NOTE | 2019-09-18 23:30 | NUR ---
NURSE NOTES: Received patient from ANABELLA Quispe. Patient is aaox2, vss, no acute distress, and family is at bedside. Patient is on engine monitor, room air, ans on a renal diet with modifications. patient is on a engine monitor, no skin issues noted and left AC 20g is intact and patent. Bed at its lowest position, call light in reach, and x3 bed rails are up. Will continue to monitor.
--- NOTE | 2019-09-18 23:47 | NUR ---
NURSE NOTES: Patient's sister refused vitals at 0000 midnight. Patient is stable and sleeping. Family member at bedside. ANABELLA Quispe was able to acquire a bed for the sister to sleep on as well.
[2019-09-19 04:00] VITALS: BP 117/64
[2019-09-19] MEDS: Ciprofloxacin Opth Soln 2.5ml BOTH EYES SCH ×3 (05:07→21:22)
[2019-09-19 05:45] LABS: ALANINE AMINOTRANSFERASE 16 U/L (12-78); ALBUMIN 1.8 G/DL (3.4-5.0); ALBUMIN/GLOBULIN RATIO 0.5 (1.0-2.7); ALKALINE PHOSPHATASE 70 U/L (46-116); ANION GAP 15 mmol/L (5-15); ASPARTATE AMINO TRANSFERASE 25 U/L (15-37); BILIRUBIN,TOTAL 0.2 MG/DL (0.2-1.0); BLOOD UREA NITROGEN 44 mg/dL (7-18); CALCIUM 7.9 MG/DL (8.5-10.1); CARBON DIOXIDE 20 MMOL/L (21-32); CHLORIDE 109 MMOL/L (98-107); CREATININE 1.9 MG/DL (0.55-1.30); POTASSIUM 4.2 MMOL/L (3.5-5.1); SODIUM 144 MMOL/L (136-145)
[2019-09-19 05:49] LABS: BASOPHILS % (AUTO) 0.2 % (0.0-2.0); HEMATOCRIT 33.8 % (37.0-47.0); HEMOGLOBIN 11.3 G/DL (12.0-16.0); LYMPHOCYTES % (AUTO) 18.5 % (20.0-45.0); MEAN CORPUSCULAR VOLUME 92 FL (80-99); NEUTROPHILS % (AUTO) 74.3 % (45.0-75.0); PLATELET COUNT 213 K/UL (150-450); RED BLOOD COUNT 3.69 M/UL (4.20-5.40); RED CELL DISTRIBUTION WIDTH 13.1 % (11.6-14.8); WHITE BLOOD COUNT 9.2 K/UL (4.8-10.8)
[2019-09-19 05:50] LABS: % IRON SATURATION 9 % (15-50); IRON 13 ug/dL (50-175); TOTAL IRON BINDING CAPACITY 147 ug/dL (250-450)
[2019-09-19 05:54] LABS: PHOSPHORUS 2.8 MG/DL (2.5-4.9)
--- NOTE | 2019-09-19 07:14 | NUR ---
HAND-OFF: Report given to ANABELLA Holbrook.
--- NOTE | 2019-09-19 07:15 | NUR ---
NURSE NOTES: REC,D PT BED SIDE REPORT FROM JAILYN TECHNICAL PRODUCER OF NOC SHIFT. REC,D PT WITH HOB ELEVATED 45 DEGREE AWAKE AND ALERT TO NAME,TRINIDADIAN SPEAKING DENIES CP OR SOB AT THIS TIME.PT REPOSITIONED IN BED AND MADE COMFORTABLE POSSIBLE. FULL BODY ASSESSMENT DONE.PT SISTER AT BED SIDE AT ALL THE TIME.ALL NEEDS ATTENDED AND ANTICIPATED.NO ACUTE DISTRESS NOTED AT THIS TIME. WILL CONT TO MONITOR.
--- NOTE | 2019-09-19 07:20 | NUR ---
NURSE NOTES: RECEIVED BED SIDE REPORT FROM JESSICA BLOCK GREASER FROM ORGANIC CHEMISTRY PROFESSOR. RECEIVED PT WITH HOB ELEVATED 45DEGREE ,AWAKE TRACH TO VENT TOLERATING WELL CURRENTS VENT SETTINGS. PT RECEIVING GTF GEVITY 1.2 @ 45CC/HRS ,TOLERATING WELL,NO RESIDUAL NOTED AT THIS TIME.PT REPOSITIONED IN BED TO PROVIDE COMFORT AND TO PREVENT FURTHER SKIN BREAK DOWN. PT WITH F/C DRAINING WELL JAYJAY URINE COLOR. V/S STABLE AT THIS TIME AND RENDERED TRACH CARE AND ORAL HYGIENE ,MOD AMT OF WHITE TICK SECRETIONS NOTED. WILL CONT TO MONITOR.
[2019-09-19 08:00] VITALS: BP 104/56
[2019-09-19] MEDS: Aspirin Baby 81mg ORAL SCH (09:15)
[2019-09-19] MEDS: Docusate 100mg cap ORAL SCH ×2 (09:15→20:30)
--- NOTE | 2019-09-19 09:32 | General Progress Note ---
Assessment/Plan Problem List: (1) Systolic CHF, acute ICD Codes: I50.21 - Acute systolic (congestive) heart failure SNOMED: 19723345, 150555263 (2) Syncope ICD Codes: R55 - Syncope and collapse SNOMED: 117632490 (3) NSTEMI (non-ST elevated myocardial infarction) ICD Codes: I21.4 - Non-ST elevation (NSTEMI) myocardial infarction SNOMED: 32984164 (4) CKD (chronic kidney disease) ICD Codes: N18.9 - Chronic kidney disease, unspecified SNOMED: 432672529 (5) ANNMARIE (acute kidney injury) ICD Codes: N17.9 - Acute kidney failure, unspecified SNOMED: 6169878, 11293383 (6) Hypotension ICD Codes: I95.9 - Hypotension, unspecified SNOMED: 97369787 (7) Anemia ICD Codes: D64.9 - Anemia, unspecified SNOMED: 912106853 (8) Leukocytosis ICD Codes: D72.829 - Elevated white blood cell count, unspecified SNOMED: 682138290, 887614938 Status: stable Assessment/Plan: 69-year-old female with 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 #Syncope #Non-ST elevation [place]- no chest pain, 2nd troponin normal, per cardiology, due to renal failure #? CHF- cxr with mild chf, newly diagnosed CHF EF 35-40% SDU Start Coreg, Hydralazine, isordil, Lasix and Aldactone if BP allows. Received one dose of IV lasix 20mg today Avoid ACEI, ARB for renal failure Schedule for stress test to rule out ischemia.Likely needs Life vest in view of Syncope and LOW EF 35% IF EF remains less than 35%, Will need ICD in 3 months. #ANNMARIE on CKD, unknown stage IV fluids Monitor renal function Nephrology consult Dr. Pepper Avoid nephrotoxic medications renal US reviewed renal function improving #Hypothyroidism Check TSH, free T4 Continue levothyroxine #GERD Continue PPI #Iron deficiency anemia Check anemia panel Stable #Bulimia nervosa and history of obesity Stable #Iron deficiency anemia continue to monitor check anemia panel Start IV iron x 5 days #Vitamin D deficiency check vitamin D levels- pending check PTH #Intellectual disability Sister: Lo Jamison [phone] PT/OT I spent 40 minutes on this encounter. >50% spent on counselling and care coordination. records from [facility] reviewed. Subjective Date patient seen: Sep 19, 2019 Constitutional: Denies: no symptoms, chills, diaphoresis, fever, malaise, weakness, other HEENT: Denies: no symptoms, eye pain, blurred vision, tearing, double vision, ear pain, ear discharge, nose pain, nose congestion, throat pain, throat swelling, mouth pain, mouth swelling, other Cardiovascular: Denies: no symptoms, chest pain, edema, irregular heart rate, lightheadedness, palpitations, syncope, other Respiratory: Reports: cough Gastrointestinal/Abdominal: Denies: no symptoms, abdomen distended, abdominal pain, black stools, tarry stools, blood in stool, constipated, diarrhea, difficulty swallowing, nausea, poor appetite, poor fluid intake, rectal bleeding , vomiting, other Genitourinary: Denies: no symptoms, burning, discharge, frequency, flank pain, hematuria, incontinence, pain, urgency, other Neurologic/Psychiatric: Denies: no symptoms, anxiety, depressed, emotional problems, headache, numbness, paresthesia, pre-existing deficit, seizure, tingling, tremors, weakness, other Endocrine: Denies: no symptoms, excessive sweating, flushing, intolerance to cold, intolerance to heat, increased hunger, increased thirst, increased urine, unexplained weight gain, unexplained weight loss, other Hematologic/Lymphatic: Denies: no symptoms, anemia, easy bleeding, easy bruising, other Allergies: Coded Allergies: No Known Allergies (Unverified , 09/17/19) Subjective no acute events. BP borderline, echo with reduced EF, waiting for records from [facility]. we also started paperwork for transfer to [facility] per sister's request Objective Last 24 Hour Vital Signs Date Time Temp Pulse Resp B/P (MAP) Pulse Ox O2 Delivery O2 Flow Rate FiO2 09/19/19 08:00 97.8 74 20 104/56 (72) 93 09/19/19 08:00 Room Air 09/19/19 08:00 75 09/19/19 04:00 97.9 70 20 117/64 (81) 94 09/19/19 04:00 Room Air 09/19/19 03:26 70 09/19/19 00:00 71 09/19/19 00:00 Room Air 09/18/19 20:17 86 18 95 Room Air 21 09/18/19 20:00 Room Air 09/18/19 20:00 77 09/18/19 20:00 98.6 68 20 123/72 (89) 92 09/18/19 16:00 Room Air 09/18/19 16:00 97.9 65 19 112/65 (81) 98 09/18/19 15:27 71 09/18/19 12:00 Room Air 09/18/19 12:00 65 09/18/19 12:00 97.7 70 17 102/60 (74) 98 Intake and Output 09/18/19 09/19/19 19:00 07:00 Output Total 220 ml Balance -220 ml Output Urine Total 220 ml Laboratory Tests 09/18/19 10:55: Sodium Level 139, Potassium Level 4.3, Chloride Level 109H, Carbon Dioxide Level 20L, Anion Gap 10, Blood Urea Nitrogen 45H, Creatinine 2.0H, Estimat Glomerular Filtration Rate , Glucose Level 74, Calcium Level 8.1L 09/18/19 16:35: Urine Color Pale yellow, Urine Appearance Cloudy, Urine pH 5, Urine Specific [place] 1.015, Urine Protein 2+H, Urine Glucose (UA) Negative, Urine Ketones 1+H , Urine Blood 2+H, Urine Nitrite Negative, Urine Bilirubin Negative, Urine Urobilinogen Normal, Urine Leukocyte Esterase 3+H, Urine RBC 5-10H, Urine WBC TntcH, Urine Squamous Epithelial Cells ManyH, Urine Bacteria ModerateH, Urine Eosinophils None seen, Urine Random Total Protein 64H, Urine Random Sodium 91, Urine Creatinine 87.0 09/19/19 03:40: Sodium Level 144, Potassium Level 4.2, Chloride Level 109H, Carbon Dioxide Level 20L, Anion Gap 15, Blood Urea Nitrogen 44H, Creatinine 1.9H, Estimat Glomerular Filtration Rate , Glucose Level 67L, Calcium Level 7.9L, White Blood Count 9.2, Red Blood Count 3.69L, Hemoglobin 11.3L, Hematocrit 33.8L, Mean Corpuscular Volume 92, Mean Corpuscular Hemoglobin 30.7, Mean Corpuscular Hemoglobin Concent 33.5, Red Cell Distribution Width 13.1, Platelet Count 213, Mean Platelet Volume 6.9, Neutrophils (%) (Auto) 74.3, Lymphocytes (%) (Auto) 18.5L, Monocytes (%) (Auto) 5.0, Eosinophils (%) (Auto) 2.0, Basophils (%) (Auto ) 0.2, Calcium (Send out) [Pending], Phosphorus Level 2.8, Iron Level 13L, Total Iron Binding Capacity 147L, Percent Iron Saturation 9L, Unsaturated Iron Binding 134, Ferritin 416H, Total Bilirubin 0.2, Aspartate Amino Transf (AST/ SGOT) 25, Alanine Aminotransferase (ALT/SGPT) 16, Alkaline Phosphatase 70, Troponin I 0.010, Total Protein 5.3L, Albumin 1.8L, Globulin 3.5, Albumin/ Globulin Ratio 0.5L, Vitamin D 25-Hydroxy [Pending], 25-Hydroxy Vitamin D2 [ Pending], 25-Hydroxy Vitamin D3 [Pending], Parathyroid Hormone (Intact) [Pending ] Height (Feet): 5 Height (Inches): 0.00 Weight (Pounds): 117 Objective General Appearance: no apparent distress Lines, tubes and drains: peripheral HEENT: normocephalic, atraumatic, anicteric, EOMI, other - green discharge both eyes Neck: non-tender, normal alignment, supple Respiratory/Chest: chest wall non-tender, lungs clear, normal breath sounds, no respiratory distress, no accessory muscle use, other - Sternotomy scar Cardiovascular/Chest: normal peripheral pulses, normal rate, regular rhythm, no gallop/murmur, no JVD Abdomen: normal bowel sounds, non tender, soft, no organomegaly, no mass, other - obese Extremities: normal range of motion, non-tender, normal inspection, no calf tenderness, no edema, no cyanosis Skin Exam: normal pigmentation, warm/dry Neurologic: no motor/sensory deficits, alert - oriented x2 , responsive Musculoskeletal: normal muscle bulk, no effusion Kingsley Pinedo M.D. Sep 19, 2019 09:32
[2019-09-19] MEDS ORDERED: NS 275ml ONE (10:13)
[2019-09-19 12:00] VITALS: BP 108/53
--- NOTE | 2019-09-19 12:45 | Nephrology Progress Note ---
Assessment/Plan Plan #ANNMARIE on CKD- unknown baseline- history suggesive pre- renal in the setting of decreased PO intake and hypotention, however given elevated BNP and mild pulm vascular congestion query cardio- renal syndrome 1- renal US with evidence of chronic medical renal disease - patient being followed by nephrology as outpatient #Syncope #Hypothyroidism #GERD #Bulimia nervosa and history of obesity #Iron deficiency anemia #Vitamin D deficiency - s/p 1L NS- hold off on further IVF given concerns for diastolic CHF - renal US reviewed - check UTP/cr-> 0.8- would defer treatment with acei/arb at this point given borderline low BP and previous concerns for hyperK per sister - f/u 2d echo results - check PTH, vitamin D- pending - iron panel, ferritin showing iron def-> start IV iron for 5 days -while inpatient - monitor bmp, mag and phos - will continue to follow Subjective Interval Events/Complaints Cr stable at 1.9 BP borderline but overall stable Constitutional: Denies: no symptoms, chills, diaphoresis, fever, malaise, weakness, other HEENT: Denies: no symptoms, eye pain, blurred vision, tearing, double vision, ear pain, ear discharge, nose pain, nose congestion, throat pain, throat swelling, mouth pain, mouth swelling, other Genitourinary: Denies: no symptoms, burning, discharge, frequency, flank pain, hematuria, incontinence, pain, urgency, other Neurologic/Psychiatric: Denies: no symptoms, anxiety, depressed, emotional problems, headache, numbness, paresthesia, pre-existing deficit, seizure, tingling, tremors, weakness, other Objective Objective Last 24 Hour Vital Signs Date Time Temp Pulse Resp B/P (MAP) Pulse Ox O2 Delivery O2 Flow Rate FiO2 09/19/19 12:00 Room Air 09/19/19 12:00 97.0 74 20 108/53 (71) 94 09/19/19 08:00 97.8 74 20 104/56 (72) 93 09/19/19 08:00 Room Air 09/19/19 08:00 75 09/19/19 04:00 97.9 70 20 117/64 (81) 94 09/19/19 04:00 Room Air 09/19/19 03:26 70 09/19/19 00:00 71 09/19/19 00:00 Room Air 09/18/19 20:17 86 18 95 Room Air 21 09/18/19 20:00 Room Air 09/18/19 20:00 77 09/18/19 20:00 98.6 68 20 123/72 (89) 92 09/18/19 16:00 Room Air 09/18/19 16:00 97.9 65 19 112/65 (81) 98 09/18/19 15:27 71 Intake and Output 09/18/19 09/19/19 19:00 07:00 Output Total 220 ml Balance -220 ml Output Urine Total 220 ml Laboratory Tests 09/18/19 16:35: Urine Color Pale yellow, Urine Appearance Cloudy, Urine pH 5, Urine Specific [place] 1.015, Urine Protein 2+H, Urine Glucose (UA) Negative, Urine Ketones 1+H , Urine Blood 2+H, Urine Nitrite Negative, Urine Bilirubin Negative, Urine Urobilinogen Normal, Urine Leukocyte Esterase 3+H, Urine RBC 5-10H, Urine WBC TntcH, Urine Squamous Epithelial Cells ManyH, Urine Bacteria ModerateH, Urine Eosinophils None seen, Urine Random Total Protein 64H, Urine Random Sodium 91, Urine Creatinine 87.0 09/19/19 03:40: White Blood Count 9.2, Red Blood Count 3.69L, Hemoglobin 11.3L, Hematocrit 33.8L , Mean Corpuscular Volume 92, Mean Corpuscular Hemoglobin 30.7, Mean Corpuscular Hemoglobin Concent 33.5, Red Cell Distribution Width 13.1, Platelet Count 213, Mean Platelet Volume 6.9, Neutrophils (%) (Auto) 74.3, Lymphocytes (% ) (Auto) 18.5L, Monocytes (%) (Auto) 5.0, Eosinophils (%) (Auto) 2.0, Basophils (%) (Auto) 0.2, Sodium Level 144, Potassium Level 4.2, Chloride Level 109H, Carbon Dioxide Level 20L, Anion Gap 15, Blood Urea Nitrogen 44H, Creatinine 1.9H , Estimat Glomerular Filtration Rate , Glucose Level 67L, Calcium Level 7.9L, Calcium (Send out) [Pending], Phosphorus Level 2.8, Iron Level 13L, Total Iron Binding Capacity 147L, Percent Iron Saturation 9L, Unsaturated Iron Binding 134 , Ferritin 416H, Total Bilirubin 0.2, Aspartate Amino Transf (AST/SGOT) 25, Alanine Aminotransferase (ALT/SGPT) 16, Alkaline Phosphatase 70, Troponin I 0.010, Total Protein 5.3L, Albumin 1.8L, Globulin 3.5, Albumin/Globulin Ratio 0.5L, Vitamin D 25-Hydroxy [Pending], 25-Hydroxy Vitamin D2 [Pending], 25- Hydroxy Vitamin D3 [Pending], Parathyroid Hormone (Intact) [Pending] Height (Feet): 5 Height (Inches): 0.00 Weight (Pounds): 114 General Appearance: WD/WN EENT: PERRL/EOMI Neck: non-tender Cardiovascular: normal peripheral pulses Respiratory/Chest: chest wall non-tender, lungs clear Abdomen: normal bowel sounds, non tender Extremities: non-tender Neurologic: alert, oriented x 3 Sheryl Pepper M.D. Sep 19, 2019 12:45
--- NOTE | 2019-09-19 14:49 | Cardiac Electrophysiology PN ---
Assessment/Plan Assessment/Plan 1. Troponin elevation. Second troponin is negative. The patient has renal failure. Creatinine 2.1. Denies any chest pain. The patient is already on aspirin. Continue Lipitor 80 mg at bedtime. 2. Newly diagnosed CMP EF 35-40% Start Coreg, Hydralazine, isordil, Lasix and Aldactone if BP allows. Avoid ACEI, ARB for renal failure Schedule for stress test to rule out ischemia.Likely needs Life vest in view of Syncope and LOW EF 35% IF EF remains less than 35%, Will need ICD in 3 months. 3. Status post open heart surgery and a sternotomy at age 4, the nature of which is unclear at this time. 4. Status post syncope, likely due to hypotension as blood pressure was in the 70s.How ever cant exclude arrhythmias in view of EF 35% 5. History of gastroesophageal reflux disease. 6. Hypothyroidism. 7. History of bulimia. 8. Renal failure with creatinine at 2.1. DW Dr Pinedo Subjective Subjective Feeling better. Records from [facility] reviewed. EF was 55% in 03/2017. Here EF 25% Objective Last 24 Hour Vital Signs Date Time Temp Pulse Resp B/P (MAP) Pulse Ox O2 Delivery O2 Flow Rate FiO2 09/19/19 12:20 74 09/19/19 12:00 Room Air 09/19/19 12:00 97.0 74 20 108/53 (71) 94 09/19/19 08:00 97.8 74 20 104/56 (72) 93 09/19/19 08:00 Room Air 09/19/19 08:00 75 09/19/19 04:00 97.9 70 20 117/64 (81) 94 09/19/19 04:00 Room Air 09/19/19 03:26 70 09/19/19 00:00 71 09/19/19 00:00 Room Air 09/18/19 20:17 86 18 95 Room Air 21 09/18/19 20:00 Room Air 09/18/19 20:00 77 09/18/19 20:00 98.6 68 20 123/72 (89) 92 09/18/19 16:00 Room Air 09/18/19 16:00 97.9 65 19 112/65 (81) 98 09/18/19 15:27 71 Intake and Output 09/18/19 09/19/19 19:00 07:00 Output Total 220 ml Balance -220 ml Output Urine Total 220 ml Laboratory Tests Test 09/18/19 16:35 09/19/19 03:40 Urine Color Pale yellow Urine Appearance Cloudy Urine pH 5 (4.5-8.0) Urine Specific [place] 1.015 (1.005-1.035) Urine Protein 2+ (NEGATIVE) H Urine Glucose (UA) Negative (NEGATIVE) Urine Ketones 1+ (NEGATIVE) H Urine Blood 2+ (NEGATIVE) H Urine Nitrite Negative (NEGATIVE) Urine Bilirubin Negative (NEGATIVE) Urine Urobilinogen Normal MG/DL (0.0-1.0) Urine Leukocyte Esterase 3+ (NEGATIVE) H Urine RBC 5-10 /HPF (0 - 2) H Urine WBC Tntc /HPF (0 - 2) H Urine Squamous Epithelial Cells Many /LPF (NONE/OCC) H Urine Bacteria Moderate /HPF (NONE) H Urine Eosinophils None seen (NONE SEEN) Urine Random Total Protein 64 MG/DL (< 11.9) H Urine Random Sodium 91 mmol/L (20-110) Urine Creatinine 87.0 MG/DL (30.0-125.0) White Blood Count 9.2 K/UL (4.8-10.8) Red Blood Count 3.69 M/UL (4.20-5.40) L Hemoglobin 11.3 G/DL (12.0-16.0) L Hematocrit 33.8 % (37.0-47.0) L Mean Corpuscular Volume 92 FL (80-99) Mean Corpuscular Hemoglobin 30.7 PG (27.0-31.0) Mean Corpuscular Hemoglobin Concent 33.5 G/DL (32.0-36.0) Red Cell Distribution Width 13.1 % (11.6-14.8) Platelet Count 213 K/UL (150-450) Mean Platelet Volume 6.9 FL (6.5-10.1) Neutrophils (%) (Auto) 74.3 % (45.0-75.0) Lymphocytes (%) (Auto) 18.5 % (20.0-45.0) L Monocytes (%) (Auto) 5.0 % (1.0-10.0) Eosinophils (%) (Auto) 2.0 % (0.0-3.0) Basophils (%) (Auto) 0.2 % (0.0-2.0) Sodium Level 144 MMOL/L (136-145) Potassium Level 4.2 MMOL/L (3.5-5.1) Chloride Level 109 MMOL/L (98-107) H Carbon Dioxide Level 20 MMOL/L (21-32) L Anion Gap 15 mmol/L (5-15) Blood Urea Nitrogen 44 mg/dL (7-18) H Creatinine 1.9 MG/DL (0.55-1.30) H Estimat Glomerular Filtration Rate mL/min (>60) Glucose Level 67 MG/DL (74-106) L Calcium Level 7.9 MG/DL (8.5-10.1) L Calcium (Send out) Pending Phosphorus Level 2.8 MG/DL (2.5-4.9) Iron Level 13 ug/dL (50-175) L Total Iron Binding Capacity 147 ug/dL (250-450) L Percent Iron Saturation 9 % (15-50) L Unsaturated Iron Binding 134 ug/dL (112-346) Ferritin 416 NG/ML (8-388) H Total Bilirubin 0.2 MG/DL (0.2-1.0) Aspartate Amino Transf (AST/SGOT) 25 U/L (15-37) Alanine Aminotransferase (ALT/SGPT) 16 U/L (12-78) Alkaline Phosphatase 70 U/L (46-116) Troponin I 0.010 ng/mL (0.000-0.056) Total Protein 5.3 G/DL (6.4-8.2) L Albumin 1.8 G/DL (3.4-5.0) L Globulin 3.5 g/dL Albumin/Globulin Ratio 0.5 (1.0-2.7) L Vitamin D 25-Hydroxy Pending 25-Hydroxy Vitamin D2 Pending 25-Hydroxy Vitamin D3 Pending Parathyroid Hormone (Intact) Pending Microbiology Date/Time Source Procedure Growth Status 09/17/19 14:22 Blood Blood Culture - Preliminary NO GROWTH AFTER 24 HOURS Resulted 09/17/19 14:10 Blood Blood Culture - Preliminary NO GROWTH AFTER 24 HOURS Resulted 09/17/19 14:22 Nasal Nares - Final Complete 09/17/19 14:22 Nasal Nares - Final Complete 09/18/19 16:35 Urine,Clean Catch Urine Culture - Preliminary NO GROWTH Resulted Objective HEAD AND NECK: No JVD. LUNGS: Clear. CARDIOVASCULAR: Shows status post prior sternotomy. Regular S1 and S2 with no gallop or murmur. ABDOMEN: Soft. EXTREMITIES: No pitting edema. Lucas Patel MD Sep 19, 2019 14:49
[2019-09-19 16:00] VITALS: BP 103/52
--- NOTE | 2019-09-19 19:20 | NUR ---
HAND-OFF: Report given to .FELI KYLE.
--- NOTE | 2019-09-19 19:20 | NUR ---
NURSE NOTES: Received report from Tung Heard, pt. in bed awake, appears to be alert to name, no signs or symptoms of acute cardiac or respiratory distress noted, bed alarm on, side rails up x's3 and safety brakes engaged, HOB elevated, pt. appears to be sating well on room air- no distress noted, pure wick intact and set to suction, pt. appears to be clean and dry, Lt. AC 20G IV intact and patent, safety measures continued, will continue with plan of care.
[2019-09-19 20:00] VITALS: BP 120/56
[2019-09-19] MEDS: Atorvastatin 80mg tab ORAL SCH (20:30)
[2019-09-19] MEDS: Enoxaparin 30mg Inj SUBQ SCH (20:31)
[2019-09-19] MEDS ORDERED: Iron Sucrose 100 MG in NS 55 ML IV SCH (21:00)
[2019-09-20] VITALS: BP 110/54
[2019-09-20 04:00] VITALS: BP_SYST 103; BP_SYST 94; BP_DIAS 59; BP_DIAS 62
--- NOTE | 2019-09-20 04:51 | NUR ---
HAND-OFF: Report given: Report given to ANABELLA Bernard- pt. transferred to telemetry- pt. remains stable and no signs of distress noted- nurse aware to f/u with development writer in am regarding SBP <100 as pt. is scheduled for Lexiscan stress test today.
[2019-09-20 04:52] LABS: BASOPHILS % (AUTO) 0.2 % (0.0-2.0); EOSINOPHILS % (AUTO) 3.2 % (0.0-3.0); HEMATOCRIT 32.5 % (37.0-47.0); MEAN CORPUSCULAR VOLUME 92 FL (80-99); MONOCYTES % (AUTO) 5.9 % (1.0-10.0); NEUTROPHILS % (AUTO) 66.7 % (45.0-75.0); PLATELET COUNT 231 K/UL (150-450); RED BLOOD COUNT 3.54 M/UL (4.20-5.40); RED CELL DISTRIBUTION WIDTH 12.8 % (11.6-14.8); WHITE BLOOD COUNT 9.6 K/UL (4.8-10.8)
--- NOTE | 2019-09-20 05:00 | NUR ---
NURSE NOTES: Informed Dr. Patel that the patient's SBP has been running below 100 for the last few readings. The patient is scheduled for a Ada-scan, will wait for a response from MD. Morning RN made aware of the condition. Patient remains stable.
[2019-09-20] MEDS ORDERED: Albuterol/Ipratropium 3ml neb HHN PRN (05:23)
[2019-09-20] MEDS ORDERED: Hydromorphone 0.5mg/0.5ml inj IVP PRN (05:24)
[2019-09-20] MEDS ORDERED: HYDROmorphone 1mg/ml Carpuject IVP PRN (05:25)
[2019-09-20] MEDS ORDERED: Miralax 17gm pkt ORAL PRN (05:26)
[2019-09-20] MEDS ORDERED: LORazepam Inj 2mg/ml 1ml IV PRN (05:26)
[2019-09-20 05:27] LABS: ANION GAP 10 mmol/L (5-15); BLOOD UREA NITROGEN 41 mg/dL (7-18); CALCIUM 8.3 MG/DL (8.5-10.1); CARBON DIOXIDE 22 MMOL/L (21-32); CHLORIDE 109 MMOL/L (98-107); CREATININE 1.9 MG/DL (0.55-1.30); POTASSIUM 3.8 MMOL/L (3.5-5.1); SODIUM 141 MMOL/L (136-145)
[2019-09-20] MEDS ORDERED: Zolpidem 5mg tab ORAL PRN (05:30)
--- NOTE | 2019-09-20 05:30 | NUR ---
NURSE NOTES: Received report from ANABELLA Knapp. Patient arrived to the tele floor from SDU via bed accompanied by 3 RNs. Patient's family is at bedside. Patient is awake and responsive, breathing regular and unlabored with no s/s of SOB noted at this time. IV access is on the LAC, 20G saline locked at this time. Per the SDU RN, patient's last few BP reading have been on the lower side. Re-assessed the patient's BP with the reading of 91/54. Patient remains asymptomatic other clements. Patient is scheduled for a Ada-scan this morning, but as low BP is a contraindication to the test, Dr. Patel the carton maker is notified of the patient's findings. Awaiting response. Belongings list reviewed and signed with the transferring RN. Patient remains on the primer supervisor, showing sinus rhythm. Bed is in the lowest position, breaks engaged, and call light is within reach at all times. All other needs attended to, patient remains stable, will continue to monitor.
[2019-09-20] MEDS: Ciprofloxacin Opth Soln 2.5ml BOTH EYES SCH ×3 (06:05→23:18)
--- NOTE | 2019-09-20 07:25 | NUR ---
HAND-OFF: Report given to ANABELLA Hair. Patient remians in stable condition. Plan of care endorsed.
--- NOTE | 2019-09-20 07:50 | NUR ---
NURSE NOTES: recvd pt. Pt is AOX2, Pt is on room air with no sign of sob or resp distress. Pt has left hand 22g SL. IV site is c/d/i. Pt appears SR on cradiac monitor. Pt is inc x2. bed in lowest position, call light within reach, will continue with plan of care
[2019-09-20 08:00] VITALS: BP 97/45
[2019-09-20] MEDS ORDERED: Lexiscan 0.4mg/5ml syringe IV PRN ×2 (08:00)
[2019-09-20] MEDS: Aspirin Baby 81mg ORAL SCH (09:00)
[2019-09-20] MEDS: Docusate 100mg cap ORAL SCH ×2 (09:00→21:25)
--- NOTE | 2019-09-20 09:43 | Cardiac Electrophysiology PN ---
Assessment/Plan Assessment/Plan 1. Troponin elevation. Second troponin is negative. The patient has renal failure. Creatinine 2.1. Denies any chest pain. The patient is already on aspirin and Lipitor 80 mg 2. Newly diagnosed CMP EF 35-40% On Coreg, Hydralazine, isordil, Lasix and Aldactone Avoid ACEI, ARB for renal failure Had stress test to rule out ischemia today. Likely needs Life vest in view of Syncope and LOW EF 35% IF EF remains less than 35% in 3 months, will need ICD 3. Status post open heart surgery and a sternotomy at age 4, the nature of which is unclear at this time. 4. Status post syncope, likely due to hypotension as blood pressure was in the 70s.However can't exclude arrhythmias in view of EF 35% 5. History of gastroesophageal reflux disease. 6. Hypothyroidism. 7. History of bulimia. 8. Renal failure with creatinine at 2.1. DW Dr Pinedo and RN Subjective Subjective Feeling better. Records from [facility] showed EF was 55% in 2017. Here EF 35% Had nuclear stress test done. Results pending Objective Last 24 Hour Vital Signs Date Time Temp Pulse Resp B/P (MAP) Pulse Ox O2 Delivery O2 Flow Rate FiO2 09/20/19 08:19 64 97/45 09/20/19 08:00 63 09/20/19 08:00 97.5 64 20 97/45 (62) 95 09/20/19 08:00 Room Air 09/20/19 04:00 Room Air 09/20/19 04:00 97.7 67 20 94/62 (73) 95 09/20/19 03:30 63 09/20/19 00:00 Room Air 09/20/19 00:00 98.0 74 20 110/54 (72) 95 09/19/19 23:36 76 09/19/19 21:23 75 120/56 09/19/19 20:31 89 18 96 Room Air 21 09/19/19 20:00 98.6 75 20 120/56 (77) 94 09/19/19 20:00 Room Air 09/19/19 19:01 77 09/19/19 16:00 97.4 18 103/52 (69) 94 09/19/19 16:00 Room Air 09/19/19 16:00 76 09/19/19 12:20 74 09/19/19 12:00 Room Air 09/19/19 12:00 97.0 74 20 108/53 (71) 94 Intake and Output 09/19/19 09/20/19 19:00 07:00 Intake Total 950 ml 60 ml Output Total 1001 ml 500 ml Balance -51 ml -440 ml Intake Oral 950 ml IV Total 60 ml Output Urine Total 1000 ml 500 ml Stool Total 1 ml # Bowel Movements 2 3 Laboratory Tests Test 09/20/19 03:50 White Blood Count 9.6 K/UL (4.8-10.8) Red Blood Count 3.54 M/UL (4.20-5.40) L Hemoglobin 11.0 G/DL (12.0-16.0) L Hematocrit 32.5 % (37.0-47.0) L Mean Corpuscular Volume 92 FL (80-99) Mean Corpuscular Hemoglobin 31.1 PG (27.0-31.0) H Mean Corpuscular Hemoglobin Concent 33.9 G/DL (32.0-36.0) Red Cell Distribution Width 12.8 % (11.6-14.8) Platelet Count 231 K/UL (150-450) Mean Platelet Volume 6.7 FL (6.5-10.1) Neutrophils (%) (Auto) 66.7 % (45.0-75.0) Lymphocytes (%) (Auto) 24.0 % (20.0-45.0) Monocytes (%) (Auto) 5.9 % (1.0-10.0) Eosinophils (%) (Auto) 3.2 % (0.0-3.0) H Basophils (%) (Auto) 0.2 % (0.0-2.0) Sodium Level 141 MMOL/L (136-145) Potassium Level 3.8 MMOL/L (3.5-5.1) Chloride Level 109 MMOL/L (98-107) H Carbon Dioxide Level 22 MMOL/L (21-32) Anion Gap 10 mmol/L (5-15) Blood Urea Nitrogen 41 mg/dL (7-18) H Creatinine 1.9 MG/DL (0.55-1.30) H Estimat Glomerular Filtration Rate mL/min (>60) Glucose Level 89 MG/DL (74-106) Calcium Level 8.3 MG/DL (8.5-10.1) L Microbiology Date/Time Source Procedure Growth Status 09/17/19 14:22 Blood Blood Culture - Preliminary NO GROWTH AFTER 48 HOURS Resulted 09/17/19 14:10 Blood Blood Culture - Preliminary NO GROWTH AFTER 48 HOURS Resulted 09/17/19 14:22 Nasal Nares - Final Complete 09/17/19 14:22 Nasal Nares - Final Complete 09/18/19 16:35 Urine,Clean Catch Urine Culture - Preliminary Mixed Gram Positive Organism Resulted Objective HEAD AND NECK: No JVD. LUNGS: Clear. CARDIOVASCULAR: Shows status post prior sternotomy. Regular S1 and S2 with no gallop or murmur. ABDOMEN: Soft. EXTREMITIES: No pitting edema. Lucas Patel MD Sep 20, 2019 09:43
--- NOTE | 2019-09-20 10:49 | NUR ---
CASE MANAGEMENT:REVIEW 09/20/19 SI: SYNCOPE D/T HYPOTENSION NEWLY DIAGNOSED CARDIOMYOPATHY EF 35% 97.5 64 20 97/45 95% ON RA H/H-11.0/32.5 BUN+41 CR+1.9 IS: IV VENOFER QHS LIPITOR PO QHS LOVENOX SQ 24 ASA PO QD COREG PO Q12 : FROM STEP DOWN TO TELEMETRY Addendum: 09/20/19 at 1227 by MEGAN NOONAN, CCIE CCIE PLAN: STRESS TEST FOR TODAY
--- NOTE | 2019-09-20 10:59 | General Progress Note ---
Assessment/Plan Problem List: (1) Systolic CHF, acute ICD Codes: I50.21 - Acute systolic (congestive) heart failure SNOMED: 63963742, 431064990 (2) Syncope ICD Codes: R55 - Syncope and collapse SNOMED: 308837811 (3) NSTEMI (non-ST elevated myocardial infarction) ICD Codes: I21.4 - Non-ST elevation (NSTEMI) myocardial infarction SNOMED: 41247267 (4) CKD (chronic kidney disease) ICD Codes: N18.9 - Chronic kidney disease, unspecified SNOMED: 682113332 (5) ANNMARIE (acute kidney injury) ICD Codes: N17.9 - Acute kidney failure, unspecified SNOMED: 9952337, 06171195 (6) Hypotension ICD Codes: I95.9 - Hypotension, unspecified SNOMED: 69980913 (7) Anemia ICD Codes: D64.9 - Anemia, unspecified SNOMED: 145567232 (8) Leukocytosis ICD Codes: D72.829 - Elevated white blood cell count, unspecified SNOMED: 493286693, 586278375 Status: stable Assessment/Plan: 69-year-old female with 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 #Syncope #Non-ST elevation [place]- no chest pain, 2nd troponin normal, per cardiology, due to renal failure #? CHF- cxr with mild chf, newly diagnosed CHF EF 35-40% SDU Start Coreg, Hydralazine, isordil, Lasix and Aldactone if BP allows. Avoid ACEI, ARB for renal failure stress test to rule out ischemia.Likely needs Life vest in view of Syncope and LOW EF 35% IF EF remains less than 35%, Will need ICD in 3 months. #ANNMARIE on CKD, unknown stage IV fluids Monitor renal function Nephrology consult Dr. Pepper Avoid nephrotoxic medications renal US reviewed, evidence of chronic medical disease renal function improving #Hypothyroidism Check TSH, free T4 Continue levothyroxine #GERD Continue PPI #Iron deficiency anemia Check anemia panel Stable #Bulimia nervosa and history of obesity Stable #Iron deficiency anemia continue to monitor check anemia panel Start IV iron x 5 days #Vitamin D deficiency check vitamin D levels- pending check PTH #Intellectual disability Sister: Lo Jamison [phone] PT/OT I spent 40 minutes on this encounter. >50% spent on counselling and care coordination. records from [facility] reviewed. Subjective Date patient seen: Sep 20, 2019 ROS Limited/Unobtainable: No Constitutional: Denies: no symptoms, chills, diaphoresis, fever, malaise, weakness, other HEENT: Denies: no symptoms, eye pain, blurred vision, tearing, double vision, ear pain, ear discharge, nose pain, nose congestion, throat pain, throat swelling, mouth pain, mouth swelling, other Cardiovascular: Denies: no symptoms, chest pain, edema, irregular heart rate, lightheadedness, palpitations, syncope, other Respiratory: Denies: no symptoms, cough, orthopnea, shortness of breath, SOB with excertion, SOB at rest, sputum, stridor, wheezing, other Gastrointestinal/Abdominal: Denies: no symptoms, abdomen distended, abdominal pain, black stools, tarry stools, blood in stool, constipated, diarrhea, difficulty swallowing, nausea, poor appetite, poor fluid intake, rectal bleeding , vomiting, other Genitourinary: Denies: no symptoms, burning, discharge, frequency, flank pain, hematuria, incontinence, pain, urgency, other Neurologic/Psychiatric: Denies: no symptoms, anxiety, depressed, emotional problems, headache, numbness, paresthesia, pre-existing deficit, seizure, tingling, tremors, weakness, other Endocrine: Denies: no symptoms, excessive sweating, flushing, intolerance to cold, intolerance to heat, increased hunger, increased thirst, increased urine, unexplained weight gain, unexplained weight loss, other Hematologic/Lymphatic: Denies: no symptoms, anemia, easy bleeding, easy bruising, other Allergies: Coded Allergies: No Known Allergies (Unverified , 09/17/19) Subjective no acute events. bp low normal. stress test today Objective Last 24 Hour Vital Signs Date Time Temp Pulse Resp B/P (MAP) Pulse Ox O2 Delivery O2 Flow Rate FiO2 09/20/19 08:19 64 97/45 09/20/19 08:00 63 09/20/19 08:00 97.5 64 20 97/45 (62) 95 09/20/19 08:00 Room Air 09/20/19 04:00 Room Air 09/20/19 04:00 97.7 67 20 94/62 (73) 95 09/20/19 03:30 63 09/20/19 00:00 Room Air 09/20/19 00:00 98.0 74 20 110/54 (72) 95 09/19/19 23:36 76 09/19/19 21:23 75 120/56 09/19/19 20:31 89 18 96 Room Air 21 09/19/19 20:00 98.6 75 20 120/56 (77) 94 09/19/19 20:00 Room Air 09/19/19 19:01 77 09/19/19 16:00 97.4 18 103/52 (69) 94 09/19/19 16:00 Room Air 09/19/19 16:00 76 09/19/19 12:20 74 09/19/19 12:00 Room Air 09/19/19 12:00 97.0 74 20 108/53 (71) 94 Intake and Output 09/19/19 09/20/19 19:00 07:00 Intake Total 950 ml 60 ml Output Total 1001 ml 500 ml Balance -51 ml -440 ml Intake Oral 950 ml IV Total 60 ml Output Urine Total 1000 ml 500 ml Stool Total 1 ml # Bowel Movements 2 3 Laboratory Tests 09/20/19 03:50: White Blood Count 9.6, Red Blood Count 3.54L, Hemoglobin 11.0L, Hematocrit 32.5L , Mean Corpuscular Volume 92, Mean Corpuscular Hemoglobin 31.1H, Mean Corpuscular Hemoglobin Concent 33.9, Red Cell Distribution Width 12.8, Platelet Count 231, Mean Platelet Volume 6.7, Neutrophils (%) (Auto) 66.7, Lymphocytes (% ) (Auto) 24.0, Monocytes (%) (Auto) 5.9, Eosinophils (%) (Auto) 3.2H, Basophils (%) (Auto) 0.2, Sodium Level 141, Potassium Level 3.8, Chloride Level 109H, Carbon Dioxide Level 22, Anion Gap 10, Blood Urea Nitrogen 41H, Creatinine 1.9H , Estimat Glomerular Filtration Rate , Glucose Level 89, Calcium Level 8.3L Height (Feet): 5 Height (Inches): 0.00 Weight (Pounds): 117 Objective General Appearance: no apparent distress Lines, tubes and drains: peripheral HEENT: normocephalic, atraumatic, anicteric, EOMI, other - green discharge both eyes Neck: non-tender, normal alignment, supple Respiratory/Chest: chest wall non-tender, lungs clear, normal breath sounds, no respiratory distress, no accessory muscle use, other - Sternotomy scar Cardiovascular/Chest: normal peripheral pulses, normal rate, regular rhythm, no gallop/murmur, no JVD Abdomen: normal bowel sounds, non tender, soft, no organomegaly, no mass, other - obese Extremities: normal range of motion, non-tender, normal inspection, no calf tenderness, no edema, no cyanosis Skin Exam: normal pigmentation, warm/dry Neurologic: no motor/sensory deficits, alert - oriented x2 , responsive Musculoskeletal: normal muscle bulk, no effusion Kingsley Pinedo M.D. Sep 20, 2019 10:59
--- NOTE | 2019-09-20 11:00 | NUR ---
NURSE NOTES: Pt has been NPO for lexiscan procedure. awaiting second part of lexiscan
[2019-09-20 12:00] VITALS: BP 111/67
[2019-09-20 16:00] VITALS: BP 99/55
--- NOTE | 2019-09-20 16:43 | Diagnostic Imaging Report ---
Indication: chest pain Technique: The study was conducted under the supervision of a coverstitch machine operator. lexiscan (regadenoson) infusion over 10 seconds followed by intravenous administration of 31.1 mCi of technetium 99m Myoview was performed. Three plane SPECT imaging of the heart was then performed. A resting study was performed as part of the one-day protocol with 10.9 mCi of technetium 99m myoview injected intravenously at that time. Three plane SPECT imaging of the heart was obtained. Comparison: None Clinical data: 1. Clinical response: Non ischemic 2. Electrocardiographic response: Non ischemic Findings: The myocardial perfusion scan demonstrates no fixed or reversible perfusion defects. LVEF is estimated at 61% on this examination. IMPRESSION: Negative myocardial perfusion scan. Note: Estimation of LVEF on this examination is limited. In our experience, the calculated LVEF is usually overestimated on this software program.
--- NOTE | 2019-09-20 17:25 | Nephrology Progress Note ---
Assessment/Plan Plan #ANNMARIE on CKD- unknown baseline- history suggesive pre- renal in the setting of decreased PO intake and hypotention, however given elevated BNP and mild pulm vascular congestion query cardio- renal syndrome 1- renal US with evidence of chronic medical renal disease - patient being followed by nephrology as outpatient #Syncope #Hypothyroidism #GERD #Bulimia nervosa and history of obesity #Iron deficiency anemia #Vitamin D deficiency - renal function stable - echo with EF 35% - On Coreg - start hydralazine and isordil as BP tolerated -start lasix and aldactone as BP allows - renal US reviewed - check UTP/cr-> 0.8- would defer treatment with acei/arb at this point given borderline low BP and previous concerns for hyperK per sister - iron panel, ferritin showing iron def-> start IV iron for 5 days -while inpatient - monitor bmp, mag and phos - will continue to follow Subjective Constitutional: Denies: no symptoms, chills, diaphoresis, fever, malaise, weakness, other HEENT: Denies: no symptoms, eye pain, blurred vision, tearing, double vision, ear pain, ear discharge, nose pain, nose congestion, throat pain, throat swelling, mouth pain, mouth swelling, other Genitourinary: Denies: no symptoms, burning, discharge, frequency, flank pain, hematuria, incontinence, pain, urgency, other Subjective No acute events BP borderline Appears comfortable renal function stable echo with EF 35-40% Objective Objective Last 24 Hour Vital Signs Date Time Temp Pulse Resp B/P (MAP) Pulse Ox O2 Delivery O2 Flow Rate FiO2 09/20/19 16:00 97.9 71 20 99/55 (70) 92 09/20/19 12:00 97.7 66 20 111/67 (82) 96 09/20/19 12:00 73 09/20/19 08:19 64 97/45 09/20/19 08:00 63 09/20/19 08:00 97.5 64 20 97/45 (62) 95 09/20/19 08:00 Room Air 09/20/19 04:00 Room Air 09/20/19 04:00 97.7 67 20 94/62 (73) 95 09/20/19 03:30 63 09/20/19 00:00 Room Air 09/20/19 00:00 98.0 74 20 110/54 (72) 95 2/5/20 23:36 76 09/19/19 21:23 75 120/56 09/19/19 20:31 89 18 96 Room Air 21 09/19/19 20:00 98.6 75 20 120/56 (77) 94 09/19/19 20:00 Room Air 09/19/19 19:01 77 Intake and Output 09/19/19 09/20/19 19:00 07:00 Intake Total 950 ml 60 ml Output Total 1001 ml 500 ml Balance -51 ml -440 ml Intake Oral 950 ml IV Total 60 ml Output Urine Total 1000 ml 500 ml Stool Total 1 ml # Bowel Movements 2 3 Laboratory Tests 09/20/19 03:50: White Blood Count 9.6, Red Blood Count 3.54L, Hemoglobin 11.0L, Hematocrit 32.5L , Mean Corpuscular Volume 92, Mean Corpuscular Hemoglobin 31.1H, Mean Corpuscular Hemoglobin Concent 33.9, Red Cell Distribution Width 12.8, Platelet Count 231, Mean Platelet Volume 6.7, Neutrophils (%) (Auto) 66.7, Lymphocytes (% ) (Auto) 24.0, Monocytes (%) (Auto) 5.9, Eosinophils (%) (Auto) 3.2H, Basophils (%) (Auto) 0.2, Sodium Level 141, Potassium Level 3.8, Chloride Level 109H, Carbon Dioxide Level 22, Anion Gap 10, Blood Urea Nitrogen 41H, Creatinine 1.9H , Estimat Glomerular Filtration Rate , Glucose Level 89, Calcium Level 8.3L Height (Feet): 5 Height (Inches): 0.00 Weight (Pounds): 117 General Appearance: WD/WN, no apparent distress EENT: PERRL/EOMI Neck: non-tender, normal alignment Cardiovascular: normal peripheral pulses, normal rate, regular rhythm Respiratory/Chest: chest wall non-tender, lungs clear Abdomen: normal bowel sounds, non tender, soft Extremities: non-tender Neurologic: alert, oriented x 3, responsive Sheryl Pepper M.D. Sep 20, 2019 17:25
--- NOTE | 2019-09-20 19:40 | NUR ---
NURSE NOTES: Received report from Laxmi Fernandez RN. Pt in stable condition, will continue to monitor.
[2019-09-20 20:00] VITALS: BP 100/55
[2019-09-20] MEDS ORDERED: Atorvastatin 80mg tab ORAL SCH (21:00)
[2019-09-20] MEDS ORDERED: Enoxaparin 30mg Inj SUBQ SCH (21:00)
[2019-09-20] MEDS ORDERED: Iron Sucrose 100 MG in NS 55 ML IV SCH (21:00)
[2019-09-21] VITALS: BP 107/57
[2019-09-21 04:00] VITALS: BP 112/79
[2019-09-21] MEDS: Ciprofloxacin Opth Soln 2.5ml BOTH EYES SCH (06:32)
--- NOTE | 2019-09-21 07:30 | NUR ---
NURSE NOTES: Nurse report given by ANABELLA Hanson. Patient's awake and eating breakfast in bed, high [place] position, eyes open spontaneously, breathing unlabored and regular, AO x 3, denies pain, no s/s of distress or SOB. Bed low and locked, side rails x 2, bed alarm is armed, monitoring engineer is on. Family member presents at bedside. IV is saline locked, flush well, patent and asymptomatic. Will continue to monitor.
--- NOTE | 2019-09-21 07:30 | NUR ---
HAND-OFF: Report given to Sara Urrutia RN. Pt in stable condition, will continue to monitor.
[2019-09-21 08:00] VITALS: BP 120/62
[2019-09-21] MEDS: Aspirin Baby 81mg ORAL SCH (09:16)
[2019-09-21] MEDS: Docusate 100mg cap ORAL SCH (09:16)
--- NOTE | 2019-09-21 10:16 | Cardiac Electrophysiology PN ---
Assessment/Plan Status Narrative The myocardial perfusion scan demonstrates no fixed or reversible perfusion defects. LVEF is estimated at 61% on this examination. Assessment/Plan 1. Troponin elevation. Second troponin is negative. The patient has renal failure. Creatinine 2.1. Denies any chest pain. The patient is already on aspirin and Lipitor 80 mg. Stress test nonischemic 2. Newly diagnosed CMP EF 35-40% On Coreg, Hydralazine, isordil, Lasix and Aldactone Avoid ACEI, ARB for renal failure Had stress test that was negative for ischemia or scar and EF 61%! 3. Status post open heart surgery and a sternotomy at age 4, the nature of which is unclear at this time. 4. Status post syncope, likely due to hypotension as blood pressure was in the 70s.However can't exclude arrhythmias in view of EF 35% 5. History of gastroesophageal reflux disease. 6. Hypothyroidism. 7. History of bulimia. 8. Renal failure with creatinine at 2.1. DW Dr Pinedo and RN Subjective Subjective Feeling better. Records from [facility] showed EF was 55% in 2017. Here EF 35% Had nuclear stress test done that showed no ischemia and EF 61% Objective Last 24 Hour Vital Signs Date Time Temp Pulse Resp B/P (MAP) Pulse Ox O2 Delivery O2 Flow Rate FiO2 09/21/19 09:00 Room Air 09/21/19 09:00 71 105/52 09/21/19 08:00 71 09/21/19 08:00 96.4 71 19 120/62 (81) 94 09/21/19 04:00 75 09/21/19 04:00 97.8 76 17 112/79 (90) 94 09/21/19 00:00 98.2 73 20 107/57 (74) 94 09/21/19 00:00 73 09/20/19 21:00 Room Air 09/20/19 21:00 74 100/55 09/20/19 20:06 87 18 96 Room Air 21 09/20/19 20:00 96.6 74 20 100/55 (70) 94 09/20/19 20:00 78 09/20/19 16:00 97.9 71 20 99/55 (70) 92 09/20/19 16:00 78 09/20/19 12:00 97.7 66 20 111/67 (82) 96 09/20/19 12:00 73 Intake and Output 09/20/19 09/21/19 19:00 07:00 # Voids 2 1 # Bowel Movements 1 1 Microbiology Date/Time Source Procedure Growth Status 09/18/19 16:35 Urine,Clean Catch Urine Culture - Final Mixed Gram Positive Organism Complete Objective HEAD AND NECK: No JVD. LUNGS: Clear. CARDIOVASCULAR: Shows status post prior sternotomy. Regular S1 and S2 with no gallop or murmur. ABDOMEN: Soft. EXTREMITIES: No pitting edema. Lucas Patel MD Sep 21, 2019 10:16
--- NOTE | 2019-09-21 10:32 | Discharge Summary ---
Discharge Summary Hospital Course Date of Admission Sep 17, 2019 at 16:36 Date of Discharge 09/21/2019 Admitting Diagnosis SYNCOPE HPI Amelia Jamison is a 69 year old female who was admitted on Sep 17, 2019 at 16: 36 for Syncope Consultations Cardiology, nephrology Procedures nuclear stress test Hospital Course 69-year-old female with 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 #Syncope, likley due to hypotension, cannot rule out arrhythmia given low EF #Non-ST elevation NV- no chest pain, 2nd troponin normal, per cardiology, due to renal failure #CHF- cxr with mild chf, newly diagnosed systolic CHF , Records from [facility] showed EF was 55% in 2017. Here EF 35%. Had nuclear stress test done that showed no ischemia and EF 61% SDU Started Coreg, atorvastatin, ASA. Hydralazine, isordil, Lasix and Aldactone on hold due to BP Avoid ACEI, ARB for renal failure Had nuclear stress test done that showed no ischemia and EF 61% #ANNMARIE on CKD, unknown stage Monitor renal function Nephrology consult Dr. Pepper Avoid nephrotoxic medications renal US reviewed, evidence of chronic medical disease renal function improving #Hypothyroidism Check TSH, free T4 Continue levothyroxine #GERD Continue PPI #Iron deficiency anemia IV iron in house DC on PO #Bulimia nervosa and history of obesity Stable #Vitamin D deficiency check vitamin D levels- pending check PTH --> Normal #Conjunctivitis s/p ciprofloxacin eye drops #Intellectual disability Sister: Lo Jamison [phone] PT/OT Today she feels better, alert and oriented x 3. sister at bedside. agreeable to discharge, she will go to medical records to take her records home with her to take to PCP. She needs cardiology follow up. I spent 40 minutes on this encounter. >50% spent on counselling and care coordination. [facility] reviewed. Discharge Medications New Medications: Ferrous Sulfate (Ferrous Sulfate) 325 Mg Tablet. 325 MG ORAL TID for 10 Days, #30 TAB 0 Refills Furosemide* (Lasix*) 20 Mg Tablet 20 MG ORAL DAILY for 10 Days, #10 TAB Aspirin* (Aspirin*) 81 Mg Tab.chew 81 MG ORAL DAILY for 10 Days, #10 TAB Atorvastatin (Lipitor) 80 Mg Tablet 80 MG ORAL BEDTIME for 10 Days, #10 TAB Carvedilol (Coreg) 3.125 Mg Tablet 3.125 MG ORAL EVERY 12 HOURS for 10 Days, #10 TAB Continued Medications: Calcitriol (Calcitriol) 0.25 Mcg Capsule 0.25 MCG PO DAILY for cholesterol, CAP (This prescription has been renewed) Levothyroxine Sodium* (Levothyroxine Sodium*) 75 Mcg Tablet 75 MCG ORAL DAILY for UNK, TAB (This prescription has been renewed) Take in the morning on an empty stomach, at least 30 minutes before food. Omeprazole (Omeprazole) 40 Mg Capsule.dr 40 MG ORAL DAILY for gastritis, CAP (This prescription has been renewed) Ranitidine HCl (Ranitidine HCl) 150 Mg Tablet 150 MG PO for GERD, TAB (This prescription has been renewed) Discharge Condition Upon Discharge: stable Discharge Vital Signs Last Vital Signs Date Time Temp Pulse Resp B/P (MAP) Pulse Ox O2 Delivery O2 Flow Rate FiO2 09/21/19 09:00 Room Air 09/21/19 09:00 71 105/52 09/21/19 08:00 96.4 19 94 09/20/19 20:06 21 Discharge Disposition Patient was discharged to home with home services Discharge Diagnoses: (1) Systolic CHF, acute (2) Syncope (3) Renal failure (4) Hypotension (5) CKD (chronic kidney disease) (6) NSTEMI (non-ST elevated myocardial infarction) (7) ANNMARIE (acute kidney injury) (8) Diastolic dysfunction Kingsley Pinedo M.D. Sep 21, 2019 10:32
[2019-09-21] MEDS ORDERED: LIPITOR80 MG ORAL (10:39)
[2019-09-21] MEDS ORDERED: FERROUS SULFAT325 M2 ORAL (10:39)
[2019-09-21] MEDS ORDERED: FUROSEMIDE20 M1 ORAL (10:39)
[2019-09-21] MEDS ORDERED: ASPIRIN81 MG ORAL (10:39)
[2019-09-21] MEDS ORDERED: COREG3.125 MG ORAL (10:39)
--- NOTE | 2019-09-21 11:54 | NUR ---
DISCHARGE PLANNED DISCHARGE ORDER NOTED NURSING WILL COORDINATE DISCHARGE WITH FAMILY SALESPERSON BOOKS HAS REFERRED PATIENT TO [facility] T: [phone] F: [phone]
[2019-09-21 12:00] VITALS: BP 113/67
--- NOTE | 2019-09-21 12:36 | Nephrology Progress Note ---
Assessment/Plan Plan #ANNMARIE on CKD- unknown baseline- history suggesive pre- renal in the setting of decreased PO intake and hypotention, however given elevated BNP and mild pulm vascular congestion query cardio- renal syndrome 1- renal US with evidence of chronic medical renal disease - patient being followed by nephrology as outpatient #nonischemic cardiomyopathy-> Had nuclear stress test done that showed no ischemia and EF 61% #Syncope #Hypothyroidism #GERD #Bulimia nervosa and history of obesity #Iron deficiency anemia #Vitamin D deficiency - renal function stable - echo with EF 35% - On Coreg 3.125mg BID - lab spending today - start hydralazine and isordil as BP tolerates -start lasix and aldactone as BP allows-> labs pending today - renal US reviewed - check UTP/cr-> 0.8- would defer treatment with acei/arb at this point given borderline low BP and previous concerns for hyperK per sister - iron panel, ferritin showing iron def-> start IV iron for 5 days -while inpatient - monitor bmp, mag and phos - will continue to follow Subjective Subjective No acute events BP borderline (lower diastolic) Appears comfortable labs pending echo with EF 35-40% Objective Objective Last 24 Hour Vital Signs Date Time Temp Pulse Resp B/P (MAP) Pulse Ox O2 Delivery O2 Flow Rate FiO2 09/21/19 09:00 Room Air 09/21/19 09:00 71 105/52 09/21/19 08:00 71 09/21/19 08:00 96.4 71 19 120/62 (81) 94 09/21/19 04:00 75 09/21/19 04:00 97.8 76 17 112/79 (90) 94 09/21/19 00:00 98.2 73 20 107/57 (74) 94 09/21/19 00:00 73 09/20/19 21:00 Room Air 09/20/19 21:00 74 100/55 09/20/19 20:06 87 18 96 Room Air 21 09/20/19 20:00 96.6 74 20 100/55 (70) 94 09/20/19 20:00 78 09/20/19 16:00 97.9 71 20 99/55 (70) 92 09/20/19 16:00 78 Intake and Output 09/20/19 09/21/19 19:00 07:00 # Voids 2 1 # Bowel Movements 1 1 Height (Feet): 5 Height (Inches): 0.00 Weight (Pounds): 115 Sheryl Pepper M.D. Sep 21, 2019 12:36
--- NOTE | 2019-09-21 13:00 | NUR ---
NURSE NOTES: Patient's discharged per Dr. Pinedo's order. Patient and family member acknowledged to pick pulling machine operator new medications that sent to [facility]. Patient in stable condition, no s/s of distress or SOB, denies pain, AOx 3. Patient does not have belonging, discharge document went over with patient and family member at bedside and signed by patient. ID discarded properly, IV removed, supervisor leaf spring repair removed. Patient ambulates with assist, picked up to going home by family member. Charge nurse, Jose Enrique and transmission technician aware of the discharge.
--- NOTE | 2019-09-21 13:15 | NUR ---
NURSE NOTES: Patient's family member notified nurse that patient's unable to hot die picker the medications from [facility] due to patient's insurance. Notified DR. Pinedo regarding the situation, stated she is unable to the patient's preferred pharmacy due to the order already finalized. told nurse to call patient's preferred pharmacy and transferred the orders with MD's NPI numbers. Charge nurse, Jose Enrique, was in charge of the medication process. Will get update.
[2019-09-21] MEDS ORDERED: NS 275ml ONE (14:07)
[2019-09-21] MEDS ORDERED: Tubing IV Secondary IV ONE (14:07)
--- NOTE | 2019-09-21 14:12 | NUR ---
NURSE NOTES: Called [facility] , per Dr. Pinedo's instructions to give prescription orders. Spoke with pharmacist Max, orders given per Shahida: 1) Aspirin 81 mg PO daily for 10 days, 2) Atorvastatin 80 mg PO Bedtime for 10 days, 3) Carvedilol 3.125 mg PO every 12 hours for 10 days, Ferrous sulfate 325 mg PO three times a day for 10 days, and 5) 20 mg PO daily for 10 days. Max acknowledged and orders placed. Noted. Attempted to call daughter x 2 to notify, no answer.
== END 2019-09-21 14:08 | disposition home or self-care (01) | DRG 280 ==
LOC: EDBD 13:42 → EMR 14:15 → EDBEDREQSVC 15:42 → EDBEDREQ 15:42 → 2W 16:36 → EDBEDREQ 18:10 → 2W 19:00 → 2E 09-20 04:34
DX: I21.4 Non-ST elevation (NSTEMI) myocardial infarction (principal); I50.21 Acute systolic (congestive) heart failure; N17.9 Acute kidney failure, unspecified; F50.2 Bulimia nervosa; I95.9 Hypotension, unspecified; N18.9 Chronic kidney disease, unspecified; E03.9 Hypothyroidism, unspecified; D64.9 Anemia, unspecified; K21.9 Gastro-esophageal reflux disease without esophagitis; D50.9 Iron deficiency anemia, unspecified; E55.9 Vitamin D deficiency, unspecified; H10.9 Unspecified conjunctivitis; R00.1 Bradycardia, unspecified; Z79.82 Long term (current) use of aspirin; F79 Unspecified intellectual disabilities
CPT/HCPCS: 36415; 70450; 71045; 76770; 78452; 80048; 80053; 81001; 81003; 82044; 82306; 82550; 82553; 82570; 82728; 82962; 83540; 83550; 83605; 83880; 83970; 84100; 84300; 84439; 84443; 84484; 85025; 86710; 86850; 86900; 86901; 87040; 87086; 89050; 93005; 93017; 93306; 93880; 94664; 96361; 96365; 99291; J2785; J7030